=== PATIENT | male | born 1945 | race African-American/Black ===

== ENCOUNTER 2017-04-26 14:26 | Inpatient (IN) ==
[2017-04-26] MEDS ORDERED: LASIX IV ONE (18:24)
[2017-04-26 18:44] LABS: ALLEN TEST YES; BE 6.4 mmoll (-3.0-3.0); BLOOD TYPE ARTERIAL; DRAW SITE R RADIAL; METHB 1.2 % (0.0-1.5); O2(CT) 15.1 mL/dL (15.0-23.0); PO2(98.6) 65 mmHg (60-100); SAMPLE BLOOD; SAO2 93.9 % (95.0-100.0); THB 11.8 g/dL (11.5-17.4)
[2017-04-26 18:48] LABS: MODALITY CANNULA; PCO2(98.6) 71 mmHg (35-45)
[2017-04-26] MEDS: PROTONIX IV SCH (20:03)
[2017-04-26] MEDS: LOVENOX SUBQ SCH (20:03)
[2017-04-26] MEDS: SODIUM CHLORIDE 0.9% INJ SCH (20:03)
[2017-04-26 20:09] LABS: HEMOGLOBIN A1C 9.1 % (4.8-6.0)
[2017-04-26] MEDS: DUONEB (A & A) INH PRN (20:19)
[2017-04-26] MEDS ORDERED: HUMULIN R SUBQ SCH (21:00)
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
[2017-04-26] MEDS: HUMALOG SUBQ SCH (23:27)
[2017-04-27] MEDS: LEVAQUIN 500 MG/D5W 500 MG/100 ML IVPB IV SCH (01:28)
[2017-04-27] MEDS: NORCO-10 PO PRN ×2 (02:33→12:55)
[2017-04-27] MEDS: SOLU-MEDROL IV SCH ×3 (03:28→11:08)
[2017-04-27] MEDS: LANTUS SUBQ SCH (03:48)
[2017-04-27 07:03] LABS: MANUAL DIFF NEEDED? NO
[2017-04-27] MEDS: HUMALOG SUBQ SCH ×3 (07:04→18:05)
[2017-04-27 07:17] LABS: BASO% 0.2 % (0.0-0.8); EOS# 0.23 X1000 (0.0-0.7); EOS% 1.6 % (0.0-10.0); HEMATOCRIT 39.1 % (42.0-52.0); HEMOGLOBIN 12.5 g/dL (14.0-18.0); IMM GRAN% 0.7 % (0.0-0.5); LYMPH# 1.38 X1000 (1.2-3.4); LYMPH% 9.8 % (20.5-51.1); MCH 26.2 PG (27-31); MONO# 0.92 X1000 (0.11-0.59); MONO% 6.5 % (1.7-9.3); MPV 9.6 FL (7.4-10.4); NEUT% 81.2 % (42.2-75.2); PLT 315 X1000 (130-400); RBC 4.77 XMIL (4.7-6.1)
[2017-04-27 07:45] LABS: AGAP 9; ALBUMIN 3.8 g/dL (3.5-5.0); ALKALINE PHOSPHATASE 66 U/L (32-122); BUN 19 mg/dL (8-22); CALCIUM 9.3 mg/dL (8.8-10.2); CHLORIDE 97 mmol/L (98-107); COSMO 283; GOT 15 U/L (10-34); GPT 39 U/L (10-44); POTASSIUM 4.7 mmol/L (3.5-5.1); SODIUM 138 mmol/L (136-145); TCO2 32 mmol/L (25-35); TOTAL BILIRUBIN 0.33 mg/dL (0.20-1.00); TOTAL PROTEIN 7.2 g/dL (6.3-8.3)
[2017-04-27] MEDS: LIORESAL PO SCH (08:16)
[2017-04-27] MEDS: LOPRESSOR PO SCH (08:16)
[2017-04-27] MEDS: NEURONTIN PO SCH (08:16)
[2017-04-27] MEDS: LASIX IV SCH (08:16)
[2017-04-27] MEDS: RANEXA PO SCH (08:16)
[2017-04-27] MEDS: IMDUR PO SCH (08:16)
[2017-04-27] MEDS: PATIENT'S OWN MED PO SCH (08:17)
[2017-04-27] MEDS: MIRALAX PO SCH (08:17)
[2017-04-27] MEDS ORDERED: BREO ELLIPTA 100/25 MCG INH INH SCH (09:00)
[2017-04-27] MEDS: BREO ELLIPTA 100/25 MCG INH INH SCH (10:08)
[2017-04-27] MEDS: DUONEB (A & A) INH PRN ×3 (10:08→21:15)
[2017-04-27] MEDS: SPIRIVA INH SCH (10:08)
--- NOTE | 2017-04-27 17:31 | PROGRESS NOTE ---
DATE: 04/27/2017 SUBJECTIVE: Patient still has some swelling and shortness of breath, wheezing. No chest pain. He is gaining weight. He did not use CPAP machine. He is going to bring his own machine today. He did receive Lantus and blood sugars running around 300. REVIEW OF SYSTEMS: Shortness of breath, cough, wheezing, swelling of feet. Blood sugars running 300. OBJECTIVE: Vital Signs: On examination, he is afebrile. Blood pressure is 150 x 85, pulse is 60, 3 L nasal cannula, 94 pounds. Weight 235 pounds. Input and output negative -800. HEENT Exam: Atraumatic, normocephalic. Pupils equal, reactive to light. JVD not seen. Chest: Bilateral wheezing. Heart: Sounds are very distant. Belly is soft, obese, nontender. Good bowel sounds. No masses palpable. Extremities: 2+ pedal edema. INVESTIGATIONS: CBC: White cell count 14, hematocrit 39, platelets 315,000. SMA 7: Sodium 138, potassium 4.7, chloride 92, BUN 19, creatinine 0.9, glucose 184. Magnesium, LFTs, cardiac enzymes, proBNP was normal. ASSESSMENT AND PLAN: 1. A 72-year-old male, admitted to the hospital in acute asthma exacerbation with underlying Pickwickian syndrome. Continue oxygen and CPAP machine, bronchodilators, IV steroids, IV antibiotics with Levaquin. 2. Elevated blood sugar due to steroids. Continue on sliding scale with insulin coverage, Lantus 40 units at bedtime. 3. Edema due to corpulmonlae and continue on IV Lasix. 4. Noncritical coronary artery disease. Stable. 5. Obesity. Discussed with the patient. Cut down the calorie diet. 6. Deep venous thrombosis, gastrointestinal prophylaxis. LEVEL OF DOCUMENTATION: 25 minutes. cc: Brian Motta MD MTDD
[2017-04-28] MEDS: HUMALOG SUBQ SCH ×5 (00:03→22:55)
[2017-04-28] MEDS: LEVAQUIN 500 MG/D5W 500 MG/100 ML IVPB IV SCH ×2 (00:04→22:54)
[2017-04-28] MEDS: LANTUS SUBQ SCH ×2 (00:05→22:54)
[2017-04-28] MEDS: NORCO-10 PO PRN ×2 (00:26→22:53)
[2017-04-28] MEDS: SOLU-MEDROL IV SCH ×2 (01:58→10:08)
[2017-04-28 06:59] LABS: BASO% 0.1 % (0.0-0.8); HEMATOCRIT 37.3 % (42.0-52.0); HEMOGLOBIN 12.3 g/dL (14.0-18.0); IMM GRAN# 0.09 X1000 (0.0-0.04); IMM GRAN% 0.5 % (0.0-0.5); LYMPH# 1.02 X1000 (1.2-3.4); MANUAL DIFF NEEDED? YES; MCH 26.6 PG (27-31); MCV 80.7 FL (81-99); MONO# 1.12 X1000 (0.11-0.59); MONO% 6.6 % (1.7-9.3); MPV 9.8 FL (7.4-10.4); NEUT% 86.8 % (42.2-75.2); PLT 323 X1000 (130-400); RBC 4.62 XMIL (4.7-6.1)
[2017-04-28 07:16] LABS: AGAP 17; BUN 21 mg/dL (8-22); CALCIUM 9.7 mg/dL (8.8-10.2); CHLORIDE 96 mmol/L (98-107); COSMO 294; POTASSIUM 4.7 mmol/L (3.5-5.1); SODIUM 142 mmol/L (136-145); TCO2 29 mmol/L (25-35)
[2017-04-28 07:55] LABS: BANDS 4 % (0-1); LYMPHS 10 % (21-51); MONO 10 % (1-9)
[2017-04-28] MEDS: BREO ELLIPTA 100/25 MCG INH INH SCH (08:27)
[2017-04-28] MEDS: SPIRIVA INH SCH (08:27)
[2017-04-28] MEDS: IMDUR PO SCH (10:07)
[2017-04-28] MEDS: LIORESAL PO SCH (10:07)
[2017-04-28] MEDS: LOPRESSOR PO SCH (10:07)
[2017-04-28] MEDS: NEURONTIN PO SCH (10:07)
[2017-04-28] MEDS: RANEXA PO SCH (10:07)
[2017-04-28] MEDS: PATIENT'S OWN MED PO SCH (10:08)
[2017-04-28] MEDS: LOVENOX SUBQ SCH (10:08)
[2017-04-28] MEDS: MIRALAX PO SCH (10:08)
[2017-04-28] MEDS: LASIX IV SCH (10:08)
[2017-04-28] MEDS: PROTONIX IV SCH (10:08)
[2017-04-28 11:50] LABS: URINE MICRO REVIEW NEEDED? NO; URINE SOURCE VOIDED
[2017-04-28 11:57] LABS: BILIRUBIN URINE NEGATIVE (NEGATIVE); BLOOD URINE NEGATIVE (NEGATIVE); COLOR STRAW; GLUCOSE URINE 300 mg/dL (NEGATIVE); LEUKOCYTES URINE NEGATIVE (NEGATIVE); NITRITE URINE NEGATIVE (NEGATIVE); PH URINE 6.5; PROTEIN URINE NEGATIVE (NEGATIVE); SP GRAVITY URINE 1.004; TURBIDITY URINE CLEAR (CLEAR); UR EPITHELIAL CELLS <10 /HPF (<10); URINE BACTERIA NEGATIVE /HPF; URINE RBC <10 /HPF (<10); URINE WBC <10 /HPF (<10); UROBILINOGEN URINE NORMAL (NORMAL)
--- NOTE | 2017-04-28 13:27 | PROGRESS NOTE ---
DATE: 04/28/2017 SUBJECTIVE: The patient is using CPAP machine. Unable to get an IV access. A little better. Blood pressure is running high as well as blood sugar. REVIEW OF SYSTEMS: None reported. OBJECTIVE: Vital Signs: Stable. Blood pressure is 200/77, I's and O's -2 L. HEENT: Within normal limits. Chest: Decreased wheezing. Heart: Sounds are regular. Abdomen: Belly is soft, obese, nontender. Extremities: Decreased peripheral edema. ASSESSMENT AND PLAN: 1. Acute asthma exacerbation, improving. Decreased prednisone twice daily. 2. Edema, much improved. 3. Diabetes, on Lantus and diet. 4. Hypertension. Start on Norvasc 10 mg once daily since [place] has not been in the hospital. 5. Continue deep venous thrombosis and gastrointestinal prophylaxis. LEVEL OF DOCUMENTATION: 25 minutes. cc: Brian Motta MD
[2017-04-28] MEDS ORDERED: SOLU-MEDROL IV SCH (21:00)
--- NOTE | 2017-04-29 06:27 | EKG Report ---
Test Performed on : 04/27/2017 06:43:37 AM Test Reason : cp Blood Pressure : / mmHG Vent. Rate : 062 BPM Atrial Rate : 062 BPM P-R Int : 224 ms QRS Dur : 080 ms QT Int : 408 ms P-R-T Axes : 061 044 044 degrees QTc Int : 414 ms Sinus rhythm. with 1st degree AV block. Otherwise normal ECG When compared with ECG of 19-DEC-2016 13:46, Nonspecific ST and T wave abnormality diffuse Confirmed by Willian Otoole DO ([id number]) on 04/30/2017 7:18:34 AM
[2017-04-29] MEDS: HUMALOG SUBQ SCH ×4 (06:47→20:57)
[2017-04-29 07:38] LABS: BASO% 0.1 % (0.0-0.8); HEMATOCRIT 37.3 % (42.0-52.0); HEMOGLOBIN 12.3 g/dL (14.0-18.0); IMM GRAN% 0.6 % (0.0-0.5); MANUAL DIFF NEEDED? YES; MCH 26.5 PG (27-31); MCV 80.4 FL (81-99); MONO# 1.35 X1000 (0.11-0.59); MONO% 8.1 % (1.7-9.3); MPV 9.9 FL (7.4-10.4); NEUT% 85.2 % (42.2-75.2); PLT 331 X1000 (130-400); RBC 4.64 XMIL (4.7-6.1)
[2017-04-29 07:42] LABS: AGAP 11; BUN 26 mg/dL (8-22); CALCIUM 9.6 mg/dL (8.8-10.2); CHLORIDE 96 mmol/L (98-107); COSMO 288; POTASSIUM 4.5 mmol/L (3.5-5.1); SODIUM 138 mmol/L (136-145); TCO2 31 mmol/L (25-35)
[2017-04-29 08:02] LABS: LYMPHS 8 % (21-51); MONO 8 % (1-9); NRBC 1 % (0-0)
[2017-04-29] MEDS: BREO ELLIPTA 100/25 MCG INH INH SCH (08:14)
[2017-04-29] MEDS: SPIRIVA INH SCH (08:14)
[2017-04-29] MEDS: MIRALAX PO SCH (08:48)
[2017-04-29] MEDS: PROTONIX IV SCH (08:49)
[2017-04-29] MEDS: LOPRESSOR PO SCH (08:49)
[2017-04-29] MEDS: NORVASC PO SCH (08:49)
[2017-04-29] MEDS: LOVENOX SUBQ SCH (08:49)
[2017-04-29] MEDS: RANEXA PO SCH (08:49)
[2017-04-29] MEDS: LASIX IV SCH (08:49)
[2017-04-29] MEDS: NEURONTIN PO SCH (08:49)
[2017-04-29] MEDS: IMDUR PO SCH (08:49)
[2017-04-29] MEDS: LIORESAL PO SCH (08:49)
[2017-04-29] MEDS: SOLU-MEDROL IV SCH (08:50)
[2017-04-29] MEDS: PATIENT'S OWN MED PO SCH (08:50)
--- NOTE | 2017-04-29 09:17 | PROGRESS NOTE ---
DATE: 04/29/2017 SUBJECTIVE: The patient is getting better. Decreased shortness of breath, cough, and wheezing. REVIEW OF SYSTEMS: None reported. OBJECTIVE: Vital signs: Afebrile. Vitals are stable. Weight 230 pounds. Saturation 91% on room air. I's and O's negative 920. HEENT: Within normal limits. Neck: Supple. Chest: Clear. Heart: Sounds are regular. Abdomen: Belly is soft, obese, nontender. Good bowel sounds. Extremities: No peripheral edema or cyanosis. Neurologic: No obvious neurological deficits. INVESTIGATIONS: CBC: White cell count 16, hematocrit 37, platelet count 331,000. SMA 7 is normal. ASSESSMENT AND PLAN: 1. Acute asthma exacerbation, better. I will cut down the prednisone to 5 mg after tapering of steroids. 2. Uncontrolled hypertension and diabetes. Optimize the treatment. 3. Edema is much improved. 4. Continue present medical therapy. LEVEL OF DOCUMENTATION: 15 minutes. cc: Brian Motta MD
[2017-04-29] MEDS: LANTUS SUBQ SCH (20:54)
[2017-04-29] MEDS: NORCO-10 PO PRN (20:56)
[2017-04-29] MEDS: LEVAQUIN 500 MG/D5W 500 MG/100 ML IVPB IV SCH (21:03)
[2017-04-30] MEDS: NORCO-10 PO PRN (03:51)
[2017-04-30] MEDS: HUMALOG SUBQ SCH ×4 (06:22→21:16)
[2017-04-30] MEDS ORDERED: TORADOL IV ONE (08:18)
[2017-04-30] MEDS: LOPRESSOR PO SCH (08:21)
[2017-04-30] MEDS: PATIENT'S OWN MED PO SCH (08:21)
[2017-04-30] MEDS: IMDUR PO SCH (08:22)
[2017-04-30] MEDS ORDERED: MISC. PHARMACY COMMUNICATION SCH (08:30)
[2017-04-30] MEDS: LOVENOX SUBQ SCH (08:31)
[2017-04-30] MEDS: NORVASC PO SCH (08:31)
[2017-04-30] MEDS: NEURONTIN PO SCH (08:31)
[2017-04-30] MEDS: SODIUM CHLORIDE 0.9% INJ SCH (08:31)
[2017-04-30] MEDS: PROTONIX IV SCH (08:31)
[2017-04-30] MEDS: SOLU-MEDROL IV SCH (08:31)
[2017-04-30] MEDS: RANEXA PO SCH (08:31)
[2017-04-30] MEDS: LIORESAL PO SCH (08:31)
[2017-04-30] MEDS: MIRALAX PO SCH (08:32)
--- NOTE | 2017-04-30 09:00 | PROGRESS NOTE ---
DATE: 04/30/2017 SUBJECTIVE: The patient here with complaints of tooth pain, decreased work of breathing on CPAP machine. OBJECTIVE: Vital Signs: Blood pressure is running a little bit high 200, on 2 L nasal cannula. HEENT: Within normal limits. Neck: Supple. Chest: Decreased wheezing. Abdomen: Belly is soft, obese, nontender. Extremities: No peripheral edema, cyanosis. Neurologic: No obvious neurological deficits. LABORATORY DATA: No labs were done. ASSESSMENT AND PLAN: 1. Hypertension. Will use the hydralazine as needed. 2. Asthma exacerbation, stable. 3. Pickwickian syndrome. Edema is improving. 4. Diabetes and hypertension. Discussed. 5. Out of the bed with Physical Therapy. LEVEL OF DOCUMENTATION: About 15 minutes. cc: Brian Motta MD
[2017-04-30] MEDS: SPIRIVA INH SCH (10:52)
[2017-04-30] MEDS: BREO ELLIPTA 100/25 MCG INH INH SCH (10:52)
[2017-04-30] MEDS ORDERED: INSULIN PEN NEEDLES ONE (17:30)
[2017-04-30] MEDS: LANTUS SUBQ SCH (21:15)
[2017-04-30] MEDS: LEVAQUIN 500 MG/D5W 500 MG/100 ML IVPB IV SCH (21:15)
[2017-04-30] MEDS: TORADOL IV PRN (21:22)
[2017-05-01] MEDS: TORADOL IV PRN (05:20)
[2017-05-01] MEDS: HUMALOG SUBQ SCH (06:18)
[2017-05-01] MEDS: BREO ELLIPTA 100/25 MCG INH INH SCH (07:37)
[2017-05-01] MEDS: SPIRIVA INH SCH (07:37)
[2017-05-01 07:58] VITALS: BP 167/80
[2017-05-01] MEDS ORDERED: PREVNAR 13 IM ONE (08:26)
[2017-05-01] MEDS: RANEXA PO SCH (08:29)
[2017-05-01] MEDS: LIORESAL PO SCH (08:29)
[2017-05-01] MEDS: NEURONTIN PO SCH (08:29)
[2017-05-01] MEDS: NORVASC PO SCH (08:29)
[2017-05-01] MEDS: LOVENOX SUBQ SCH (08:30)
[2017-05-01] MEDS: SOLU-MEDROL IV SCH (08:30)
[2017-05-01] MEDS: PROTONIX IV SCH (08:30)
[2017-05-01] MEDS: MIRALAX PO SCH (08:30)
[2017-05-01] MEDS: PATIENT'S OWN MED PO SCH (08:30)
[2017-05-01] MEDS: SODIUM CHLORIDE 0.9% INJ SCH (08:30)
[2017-05-01] MEDS ORDERED: LOPRESSOR PO SCH (09:00)
[2017-05-01] MEDS ORDERED: IMDUR PO SCH (09:00)
--- NOTE | 2017-05-02 21:05 | DISCHARGE SUMMARY ---
ADMISSION DATE: 04/26/2017 DISCHARGE DATE: 05/01/2017 DISCHARGING DIAGNOSIS: Acute asthma exacerbation. SECONDARY DIAGNOSIS: 1. Pickwickian syndrome. 2. Sleep apnea on CPAP machine. 3. Benign prostatic hypertrophy. 4. Gallstones, asymptomatic. 5. [place] syndrome due to exogenous steroids. Decrease the prednisone to 5 mg daily. 6. Type 2 diabetes. 7. Hypertension. 8. Nonalcohol steatohepatitis. 9. Acid reflux disease. 10. Hyperuricemia. 11. Umbilical hernia. 12. Osteoarthritis. 13. Spondylosis of lumbar spine. BRIEF HISTORY: Please see the H and P that was done on 04/26/2017. In brief, he is a 72-year-old male who was admitted to the hospital on 04/26/2017 with shortness of breath, cough, wheezing, swelling of feet. Unable to improve with outpatient medical management. HOSPITAL COURSE: He has history of asthma under the care of Dr. Lambert and basically on Xolair and prednisone 10 mg daily. The patient was given oxygen, CPAP, bronchodilators, IV steroids, IV antibiotics. After Lasix, significant improvement of edema. Blood sugars are running high. He was not able to take Bydureon. Rest of the hospital course was uneventful. The patient was advised to lose weight. LABORATORY: CBC: White cell count 16, hematocrit 37, platelets 331,000. SMA7: Sodium 138, potassium 4.8, chloride 96, BUN 26, creatinine 1.00. A1c 9.1, glucose 240. At the time of discharge, patient is stable. DISCHARGE INSTRUCTIONS ARE FOLLOWS: 1. Oxygen 2 L. 2. CPAP machine. 3. Breo 1 inhalation daily. 4. ProAir for breakthrough pain. 5. Incruse 62.5 mcg daily. 6. Gabapentin 300 q.8. 7. Baclofen 10 mg daily. 8. Prednisone 5 mg daily. 9. Metoprolol 25 daily. 10. [place] 10 q.6 as needed. 11. Ranexa 500 daily. 12. Isosorbide 30 mg daily. 13. Sulindac 150 daily. 14. Sular 20 mg daily. 15. Insulin Lantus 40 units at bedtime. 16. Bydureon or Victoza as directed. 17. Patient also has left knee pain due to meniscal tear with a Stanley's cyst. Had an MRI done in February 2017. 18. Follow up in my office in next week. cc: Brian Motta MD
== END 2017-05-01 09:57 | disposition home health service (06) ==
LOC: DIRADM 14:26 → 3N 14:58
PROVIDERS: ADMIT Internal Medicine; ATTEND Internal Medicine

== ENCOUNTER 2019-02-11 17:05 | Inpatient (IN) ==
--- NOTE | 2019-02-11 21:58 | Diag Imaging Result Doc PS360 ---
EXAM: CHEST-2 VIEWS - 02/11/2019 HISTORY: SOB TECHNIQUE: Chest two views COMPARISON: 12/06/2017 FINDINGS: Heart size appears normal. There are possibly mild COPD changes. There is no consolidation, gross pulmonary edema, pleural effusion, or pneumothorax identified. IMPRESSION: Possible mild COPD changes. No discrete pneumonia. Electronically signed by Tima Hahn 02/11/2019 9:56 PM
[2019-02-11 22:39] LABS: BASO# 0.03 X1000 (0.0-0.2); BASO% 0.2 % (0.0-0.8); EOS# 0.12 X1000 (0.0-0.7); EOS% 0.8 % (0.0-10.0); HEMATOCRIT 38.3 % (42.0-52.0); HEMOGLOBIN 12.6 g/dL (14.0-18.0); IMM GRAN# 0.07 X1000 (0.0-0.04); IMM GRAN% 0.5 % (0.0-0.5); LYMPH# 1.81 X1000 (1.2-3.4); LYMPH% 11.9 % (20.5-51.1); MCH 26.6 PG (27-31); MCHC 32.9 g/dL (33-37); MONO# 1.09 X1000 (0.11-0.59); MONO% 7.2 % (1.7-9.3); MPV 9.6 FL (7.4-10.4); NEUT# 12.08 X1000 (1.4-6.5); NEUT% 79.4 % (42.2-75.2); PLT 335 X1000 (130-400); RBC 4.73 XMIL (4.7-6.1); RDW 14.9 % (11.5-14.5)
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
[2019-02-11 22:53] LABS: HEMOGLOBIN A1C 8.4 % (4.8-6.0)
[2019-02-11 22:55] LABS: AGAP 11; ALB/GLOB RATIO 1.5; ALBUMIN 4.3 g/dL (3.5-5.0); ALKALINE PHOSPHATASE 77 U/L (32-122); BUN 19 mg/dL (8-22); CALCIUM 9.6 mg/dL (8.8-10.2); CHLORIDE 100 mmol/L (98-107); COSMO 290; ESTIMATED GFR > 60; GLUCOSE 190 mg/dL (70-104); GOT 11 U/L (10-34); GPT 20 U/L (10-44); PHOSPHORUS 2.6 mg/dL (2.7-4.5); POTASSIUM 4.7 mmol/L (3.5-5.1); SODIUM 142 mmol/L (136-145); TCO2 31 mmol/L (25-35); TOTAL BILIRUBIN 0.26 mg/dL (0.20-1.00); TOTAL PROTEIN 7.1 g/dL (6.3-8.3)
[2019-02-11 23:02] LABS: CK PROFILE 212 U/L (24-204)
[2019-02-11 23:22] LABS: CK INDEX 1.6 (0.0-2.5); CK-MB 3.41 ng/mL (0.0-5.0)
[2019-02-11 23:46] LABS: SED RATE 16 mm/hr (0-15)
[2019-02-11] MEDS: LOVENOX SUBQ SCH (23:54)
[2019-02-11] MEDS: LASIX IV SCH (23:54)
[2019-02-11] MEDS: NEURONTIN PO SCH (23:55)
[2019-02-11] MEDS: HUMALOG SUBQ SCH (23:55)
[2019-02-11] MEDS: LANTUS INSULIN SUBQ SCH (23:55)
[2019-02-12 01:17] LABS: ALLEN TEST YES; BE 9.7 mmoll (-3.0-3.0); BLOOD TYPE ARTERIAL; HCO3-(ACT) 32.5 mmoll (20.0-26.0); METHB 1.1 % (0.0-1.5); O2(CT) 17.2 mL/dL (15.0-23.0); O2HB 96.4 % (95.0-99.0); PCO2(98.6) 45 mmHg (35-45); PO2(98.6) 176 mmHg (60-100); SAMPLE BLOOD; SAO2 98.6 % (95.0-100.0); SRATE 12 BPM; THB 12.4 g/dL (11.5-17.4); pH(98.6) 7.49 (7.35-7.45)
[2019-02-12 01:19] LABS: MODALITY BI PAP
[2019-02-12] MEDS: NEURONTIN PO SCH ×4 (06:39→22:03)
--- NOTE | 2019-02-12 07:26 | EKG Report ---
Test Performed on : 02/12/2019 00:15:07 AM Test Reason : chest pain Blood Pressure : / mmHG Vent. Rate : 073 BPM Atrial Rate : 073 BPM P-R Int : 232 ms QRS Dur : 078 ms QT Int : 380 ms P-R-T Axes : -27 008 055 degrees QTc Int : 418 ms Sinus rhythm. with sinus arrhythmia. with 1st degree AV block. Nonspecific T wave abnormality Abnormal ECG When compared with ECG of 27-APR-2017 06:43, No significant change was found Confirmed by Rolando GILES, Adan Guillaume ([id number]) on 02/12/2019 6:38:52 PM
[2019-02-12] MEDS ORDERED: BREO ELLIPTA 100/25 MCG INH INH SCH (07:30)
[2019-02-12] MEDS ORDERED: INCRUSE ELLIPTA INH SCH (07:30)
[2019-02-12] MEDS ORDERED: VENTOLIN HFA INH PRN (08:26)
[2019-02-12] MEDS ORDERED: NORCO-10 PO PRN (08:26)
[2019-02-12] MEDS: HUMALOG SUBQ SCH ×4 (08:31→22:10)
[2019-02-12] MEDS ORDERED: LIORESAL PO SCH (09:00)
[2019-02-12] MEDS ORDERED: NISOLDIPINE 20 MG PO SCH (09:00)
[2019-02-12] MEDS ORDERED: LOPRESSOR PO SCH (09:00)
[2019-02-12] MEDS ORDERED: RANEXA PO SCH (09:00)
[2019-02-12] MEDS ORDERED: PREDNISONE PO SCH (09:00)
[2019-02-12] MEDS: DUONEB (A & A) INH SCH ×3 (10:00→21:00)
[2019-02-12] MEDS: RANEXA PO SCH ×2 (10:25→22:03)
[2019-02-12] MEDS: FLOMAX PO SCH (10:25)
[2019-02-12] MEDS: SINGULAIR PO SCH (10:26)
[2019-02-12] MEDS: KLOR-CON POWDER PACKET PO SCH (10:27)
[2019-02-12] MEDS: NORVASC PO SCH (10:27)
[2019-02-12] MEDS: PREDNISONE PO SCH (10:29)
[2019-02-12] MEDS: BUMEX PO SCH ×2 (10:29→22:03)
[2019-02-12] MEDS: ZYLOPRIM PO SCH (10:30)
[2019-02-12] MEDS: IMDUR PO SCH (10:30)
[2019-02-12] MEDS: PROSCAR PO SCH (10:30)
[2019-02-12] MEDS: CLINORIL PO SCH (10:31)
[2019-02-12] MEDS: LASIX IV SCH ×2 (10:31→22:04)
[2019-02-12] MEDS: GLUCOPHAGE PO SCH ×2 (10:54→16:41)
[2019-02-12] MEDS ORDERED: COMBIVENT RESPIMAT INHALER INH SCH (14:00)
--- NOTE | 2019-02-12 21:46 | PROGRESS NOTE ---
DATE: 02/12/2019 SUBJECTIVE: The patient has shortness of breath off BiPAP machine. Swelling is much improved. OBJECTIVE: Vital signs: Temperature is 97.6, pulse is 60, blood pressure is 115/60, oxygen saturation 92%. HEENT Exam: Within normal limits. Neck: Supple. No lymphadenopathy. Chest: Bilateral air entry very poor. Cardiovascular: Distant heart sounds. Abdomen: Belly is soft, obese. Extremities: 1+ pedal edema. INVESTIGATIONS: White cell count 15, hematocrit 38, platelets 335,000. Sedimentation rate is 16. ABG: pH is 7.49, pCO2 45, pO2 176 on BiPAP. Sodium 142, potassium 4.7, BUN 19, creatinine 1, glucose 190, A1c 8.4, CK 212. Troponin was negative. ProBNP 136. Thyroid function tests were normal. Chest x-ray was COPD. No pneumonia. ASSESSMENT AND PLAN: 1. A 73-year-old male admitted to the hospital with acute asthma/Pickwickian syndrome with edema. Continue oxygen, BiPAP. I discussed with Dr. Lambert he needs to lose weight. Please continue on prednisone, Xolair for asthma. 2. Type 2 diabetes on Lantus 40 units at bedtime, metformin 500 p.o. b.i.d. 3. Allergies, asthma on Singulair and Xolair. 4. Chronic osteoarthritis pain on Sulindac. 5. Edema due to cor pulmonale. Lasix IV q.12. 6. Gout on Zyloprim. 7. Benign prostatic hypertrophy on finasteride and Flomax. 8. Noncritical heart disease. Last stress test was negative on Ranexa, isosorbide, under care of Dr. Meyer. 9. Hypertension on amlodipine. 10. Deep venous thrombosis prophylaxis. If stable, we will discharge in the morning. LEVEL OF DOCUMENTATION: 25 minutes. cc: Brian Motta MD
[2019-02-12] MEDS: LOVENOX SUBQ SCH (22:04)
[2019-02-12] MEDS: LANTUS INSULIN SUBQ SCH (22:05)
[2019-02-13] MEDS: DUONEB (A & A) INH SCH (03:00)
[2019-02-13] MEDS: HUMALOG SUBQ SCH (07:31)
[2019-02-13 08:18] VITALS: BP 153/68
[2019-02-13] MEDS: BUMEX PO SCH (09:10)
[2019-02-13] MEDS: KLOR-CON POWDER PACKET PO SCH (09:16)
[2019-02-13] MEDS: GLUCOPHAGE PO SCH (09:16)
[2019-02-13] MEDS: FLOMAX PO SCH (09:16)
[2019-02-13] MEDS: LASIX IV SCH (09:17)
[2019-02-13] MEDS: ZYLOPRIM PO SCH (09:17)
[2019-02-13] MEDS: SINGULAIR PO SCH (09:17)
[2019-02-13] MEDS: IMDUR PO SCH (09:17)
[2019-02-13] MEDS: PROSCAR PO SCH (09:17)
[2019-02-13] MEDS: NEURONTIN PO SCH (09:17)
[2019-02-13] MEDS: NORVASC PO SCH (09:18)
[2019-02-13] MEDS: CLINORIL PO SCH (09:18)
[2019-02-13] MEDS: PREDNISONE PO SCH (09:18)
--- NOTE | 2019-02-14 22:48 | DISCHARGE SUMMARY ---
ADMISSION DATE: 02/11/2019 DISCHARGE DATE: 02/13/2019 DISCHARGE DIAGNOSIS: Acute asthma exacerbation with right-sided heart failure. SECONDARY DIAGNOSES: 1. History of asthma, on prednisone, dependent in Xolair. 2. Pickwickian syndrome. 3. Sleep apnea. 4. Noncritical coronary artery disease. Recent stress test was negative by Dr. Meyer. 5. Benign prostatic hypertrophy. 6. Gallstones. 7. 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 8. Type 2 diabetes, poorly controlled. 9. Hypertension. 10. Acid reflux disease. 11. Hyperglycemia. 12. Nonalcoholic steatohepatitis. 13. Osteoarthritis of lumbar spine. 14. Umbilical hernia. BRIEF HISTORY: Please see the H and P which was done on 02/11/2019. In brief, he is a 73-year- old male with the above problems, under the care of Dr. Lambert. Obesity; sleep apnea; pickwickian syndrome. He came in with shortness of breath, wheezing and swelling of feet. He has been taking oxygen 3 L. Oxygen levels in my office and pulse oximetry 85%. He was given the options. and his , he just came back from [facility]. HOSPITAL COURSE: He was admitted here for oxygen, bronchodilators, IV antibiotics, IV Lasix and given BiPAP. Subsequently, he was less bronchospastic, and he was advised to lose weight. LABORATORY DATA: White cell count 15.2, hematocrit 38, platelets 335,000. Sedimentation rate was 16. ABG: PH is 7.49, pCO2 is 45, pO2 is 166 on BiPAP machine. SMA 7 is normal. A1c 8.4. Cardiac enzymes are negative. ProBNP 136. Thyroid function tests were normal. DISCHARGE MEDICATIONS: Breo 100/25 one puff daily; Combivent for breakthrough; [place] 10 q.6 with pain specialist; isosorbide 30 mg daily; sulindac 150 daily; Lantus 40 units subcutaneous at bedtime; allopurinol 100 daily; amlodipine 10 daily; Bumex 2 mg p.o. b.i.d.; finasteride 5 mg daily; gabapentin 800 t.i.d.; metformin 500 p.o. b.i.d.; potassium 20 mEq daily; prednisone 10 mg daily, we will slowly decrease to 5 from 10; Ranexa 1000 p.o. b.i.d.; Flomax 0.4 daily; ProAir for breakthrough; Singulair 10 daily; Xolair as needed, by Dr. Lambert. DISCHARGE INSTRUCTIONS: Chronic pain specialist followup. Initiate vaccination protocol prior to the discharge. Obviously, the patient received pneumococcal vaccine 13 on 05/01/2017. cc: MD Isac Mueller MD James E. Boyle, MD MTDD
== END 2019-02-13 11:10 | disposition home or self-care (01) | DRG 202 ==
LOC: DIRADM 17:05 → 4N 21:28
PROVIDERS: ADMIT Internal Medicine; ATTEND Internal Medicine
CPT/HCPCS: 71020; 71046; 80053; 82550; 82553; 82805; 82948; 83036; 83880; 84100; 84439; 84484; 85025; 85651; 93005; 93010; 93306; 94640; 94660; 94761; A9270; J1650; J1815; J1940; J7506; J7512; S0138; XXXXX

== ENCOUNTER 2019-09-19 15:47 | Inpatient (IN) ==
[2019-09-19] MEDS ORDERED: LASIX IV ONE (15:57)
[2019-09-19] MEDS ORDERED: SODIUM CHLORIDE 0.9% INJ SCH (16:00)
--- NOTE | 2019-09-19 18:02 | Diag Imaging Result Doc PS360 ---
EXAM: CHEST-2 VIEWS 09/19/2019 HISTORY: SOB TECHNIQUE: AP upright chest at 1754 with lateral COMMENT: The appearance of the chest has not changed significantly since 02/11/2019. IMPRESSION: No acute abnormality. Electronically signed by Blake Townsend 09/19/2019 5:59 PM
[2019-09-19 19:06] LABS: BASO# 0.02 X1000 (0.0-0.2); BASO% 0.1 % (0.0-0.8); EOS# 0.17 X1000 (0.0-0.7); EOS% 1.1 % (0.0-10.0); HEMATOCRIT 36.3 % (42.0-52.0); HEMOGLOBIN 11.6 g/dL (14.0-18.0); IMM GRAN% 0.7 % (0.0-0.5); LYMPH# 1.13 X1000 (1.2-3.4); LYMPH% 7.4 % (20.5-51.1); MCH 26.5 PG (27-31); MCV 82.9 FL (81-99); MONO# 0.75 X1000 (0.11-0.59); MONO% 4.9 % (1.7-9.3); MPV 9.6 FL (7.4-10.4); NEUT# 13.19 X1000 (1.4-6.5); NEUT% 85.8 % (42.2-75.2); PLT 322 X1000 (130-400); RBC 4.38 XMIL (4.7-6.1); WBC 15.36 X1000 (4.8-10.8)
[2019-09-19] MEDS ORDERED: VENTOLIN HFA INH PRN (19:16)
[2019-09-19 19:19] LABS: AGAP 11; BUN 17 mg/dL (8-22); CALCIUM 8.8 mg/dL (8.8-10.2); CHLORIDE 95 mmol/L (98-107); COSMO 279; CREATININE 1.1 mg/dL (0.7-1.2); ESTIMATED GFR > 60; GLUCOSE 226 mg/dL (70-104); MAGNESIUM 1.8 mg/dL (1.5-2.7); POTASSIUM 5.2 mmol/L (3.5-5.1); SODIUM 135 mmol/L (136-145); TCO2 29 mmol/L (25-35)
[2019-09-19 19:27] LABS: BANDS 2 % (0-1); EOS 2 % (1-10); LARGE PLATELETS 1+; LYMPHS 8 % (21-51); MONO 4 % (1-9); SEGS 84 % (42-75)
[2019-09-19] MEDS: DUONEB (A & A) INH SCH ×2 (19:36→23:24)
[2019-09-19] MEDS: LEVAQUIN 500 MG/D5W 500 MG/100 ML IVPB IV SCH (19:40)
[2019-09-19] MEDS: PROTONIX IV SCH (19:41)
--- NOTE | 2019-09-19 19:47 | HISTORY AND PHYSICAL ---
HISTORY OF PRESENT ILLNESS: Mr. Araujo, who is a 74-year-old gentleman, has been having shortness of breath and increasing leg edema with some pain in the legs and redness. He actually went to Med-Surg this afternoon, where after initial examination, it was found that he had severe shortness of breath, was in congestive heart failure, and had acute bronchitis with COPD also, and some stasis dermatitis. Hence, he was admitted. He has a known case of hypertension, maturity-onset diabetes, COPD, gross obesity, and BPH. He has severe arthritis in both knees as well as degenerative disc disease in the lumbar spine. He has been getting more and more symptomatic. Hence, he was admitted to the hospital. He is a patient of Dr. Motta. SURGICAL HISTORY: Reveals history of 2 back surgeries in the past. He had multiple sores and multiple scarring in both legs; however, there was no leg surgery according to him. SOCIAL HISTORY: He denies a history of alcohol intake. He smokes on a regular basis. He has been smoking for more than 60 years now. ALLERGIES: He is allergic to Monopril or fosinopril. MEDICATIONS: Include tamsulosin, prednisone, potassium, montelukast, metformin, isosorbide, Ranexa, Humalog insulin and albuterol inhaler. REVIEW OF SYSTEMS: Other than shortness of breath, persistent cough and pain in the legs as well as increasing swelling, review of systems is noncontributory. PHYSICAL EXAMINATION: VITAL SIGNS: Reveal temperature normal, pulse 85 per minute, respiratory rate 18 per minute, blood pressure 177/78. HEAD: Normocephalic. Pupils PERRLA. Fundus examination not done. NECK: Supple. JVP normal. ENT: Unremarkable. NECK: There is no evidence of lymphadenopathy or thyroid enlargement. EXTREMITIES: There is gross pedal edema with some scarring and mild stasis dermatitis with skin inflammation. Pedal pulses feeble. There is no calf tenderness. The patient is obese. BREASTS: Normal. CHEST: Normal inspection. LUNGS: Reveal some expiratory wheezing bilaterally with occasional basal rales. PMI in the normal position. CARDIOVASCULAR: PMI cannot be located. Heart sounds normal. No murmur, gallop or rub noted. ABDOMEN: Obese. The hernial orifice is normal. No guarding, rigidity, free fluid, masses, or organomegaly. Bowel sounds normal. RECTAL: Deferred. STATION DETECTIVE: Higher functions normal. Cranial nerves normal. Motor and sensory system examination unremarkable. Deep tendon reflexes normal. Plantars downgoing. Skull and spine examination normal for age. No cerebellar signs or signs of meningeal irritation. SKIN: Unremarkable except for the cellulitis which is mild in both legs. IMPRESSION: 1. Chronic obstructive pulmonary disease with acute exacerbation. 2. Mild congestive heart failure on clinical basis. 3. Some mild cellulitis on both legs. PLAN: Start IV Lasix, Levaquin and respiratory therapy. Continue prednisone and continue his oral medications. We will put him on Protonix as well as Lovenox. cc: MD Brian Hawkins MD
[2019-09-19] MEDS ORDERED: COMBIVENT RESPIMAT INHALER INH SCH (20:00)
[2019-09-19] MEDS: GLUCOPHAGE PO SCH (21:33)
[2019-09-19] MEDS: RANEXA PO SCH (21:33)
[2019-09-19] MEDS: LANTUS INSULIN SUBQ SCH (21:33)
[2019-09-19] MEDS: LOVENOX SUBQ SCH (21:33)
[2019-09-19] MEDS: HUMALOG SUBQ SCH (22:15)
[2019-09-20] MEDS: DUONEB (A & A) INH SCH ×6 (03:21→23:37)
[2019-09-20] MEDS: HUMALOG SUBQ SCH ×5 (06:30→20:25)
[2019-09-20] MEDS: NEURONTIN PO SCH ×3 (08:32→20:25)
[2019-09-20] MEDS: PREDNISONE PO SCH (08:32)
[2019-09-20] MEDS: LASIX IV SCH (08:33)
[2019-09-20] MEDS: NORVASC PO SCH (08:34)
[2019-09-20] MEDS: PROSCAR PO SCH (08:34)
[2019-09-20] MEDS: SINGULAIR PO SCH (08:34)
[2019-09-20] MEDS: KLOR-CON POWDER PACKET PO SCH (08:34)
[2019-09-20] MEDS: ZYLOPRIM PO SCH (08:34)
[2019-09-20] MEDS: FLOMAX PO SCH (08:34)
[2019-09-20] MEDS: IMDUR PO SCH (08:34)
[2019-09-20] MEDS: RANEXA PO SCH ×2 (08:35→20:25)
[2019-09-20] MEDS: GLUCOPHAGE PO SCH ×2 (08:36→17:35)
[2019-09-20] MEDS: BREO ELLIPTA 100/25 MCG INH INH SCH (08:51)
[2019-09-20] MEDS: CLINORIL PO SCH (09:22)
[2019-09-20 10:48] LABS: ALLEN TEST YES; BE 6.1 mmoll (-3.0-3.0); BLOOD TYPE ARTERIAL; HCO3-(ACT) 29.6 mmoll (20.0-26.0); METHB 0.8 % (0.0-1.5); O2(CT) 17.4 mL/dL (15.0-23.0); O2HB 94.1 % (95.0-99.0); PO2(98.6) 75 mmHg (60-100); SAMPLE BLOOD; SAO2 96.3 % (95.0-100.0); THB 13.1 g/dL (11.5-17.4); pH(98.6) 7.36 (7.35-7.45)
[2019-09-20 10:50] LABS: MODALITY CANNULA; PCO2(98.6) 59 mmHg (35-45)
[2019-09-20] MEDS: SOLU-MEDROL IV SCH ×2 (11:50→22:18)
--- NOTE | 2019-09-20 12:55 | PROGRESS NOTE ---
DATE: 09/20/2019 Mr. Araujo was admitted yesterday with COPD and acute exacerbation. White count is 15.36. He has some CO2 retention with pH of 7.36, pCO2 of 59. Besides his breathing treatments and BiPAP at nighttime, we have started IV Solu-Medrol and IV antibiotics. The cellulitis on the legs appears improved. He complains about severe back pain. We will continue the [place] p.r.n. -8 cc: MD Brian Hawkins MD
[2019-09-20] MEDS: NORCO-10 PO PRN (13:51)
[2019-09-20] MEDS: PROTONIX IV SCH (15:23)
[2019-09-20] MEDS: LOVENOX SUBQ SCH (19:45)
[2019-09-20] MEDS: LEVAQUIN 500 MG/D5W 500 MG/100 ML IVPB IV SCH (19:45)
[2019-09-20] MEDS: LANTUS INSULIN SUBQ SCH (20:26)
[2019-09-21] MEDS: DUONEB (A & A) INH SCH ×6 (04:05→23:28)
[2019-09-21] MEDS: HUMALOG SUBQ SCH ×4 (06:07→21:23)
[2019-09-21 06:52] LABS: AGAP 13; BUN 20 mg/dL (8-22); CALCIUM 8.9 mg/dL (8.8-10.2); CHLORIDE 97 mmol/L (98-107); COSMO 287; CREATININE 1.2 mg/dL (0.7-1.2); ESTIMATED GFR > 60; GLUCOSE 281 mg/dL (70-104); POTASSIUM 4.9 mmol/L (3.5-5.1); SODIUM 137 mmol/L (136-145); TCO2 27 mmol/L (25-35)
--- NOTE | 2019-09-21 07:06 | EKG Report ---
Test Performed on : 09/21/2019 07:01:21 AM Test Reason : CP Blood Pressure : / mmHG Vent. Rate : 073 BPM Atrial Rate : 073 BPM P-R Int : 266 ms QRS Dur : 084 ms QT Int : 374 ms P-R-T Axes : 011 027 033 degrees QTc Int : 412 ms Sinus rhythm. with 1st degree AV block. Otherwise normal ECG Confirmed by Rolando GILES, Adan Guillaume ([id number]) on 09/21/2019 9:29:27 AM
[2019-09-21] MEDS: BREO ELLIPTA 100/25 MCG INH INH SCH (07:50)
[2019-09-21] MEDS: NEURONTIN PO SCH ×4 (09:11→20:31)
[2019-09-21] MEDS: GLUCOPHAGE PO SCH ×2 (09:12→17:10)
[2019-09-21] MEDS: LASIX IV SCH (09:12)
[2019-09-21] MEDS: PROSCAR PO SCH (09:13)
[2019-09-21] MEDS: SINGULAIR PO SCH (09:13)
[2019-09-21] MEDS: FLOMAX PO SCH (09:13)
[2019-09-21] MEDS: KLOR-CON POWDER PACKET PO SCH (09:13)
[2019-09-21] MEDS: ZYLOPRIM PO SCH (09:13)
[2019-09-21] MEDS: NORVASC PO SCH (09:13)
[2019-09-21] MEDS: IMDUR PO SCH (09:13)
[2019-09-21] MEDS: CLINORIL PO SCH (09:13)
[2019-09-21] MEDS: PREDNISONE PO SCH (09:13)
[2019-09-21] MEDS: RANEXA PO SCH ×2 (09:13→20:25)
[2019-09-21] MEDS: SOLU-MEDROL IV SCH (11:32)
[2019-09-21] MEDS: ELOCON CREAM TOP SCH (15:10)
[2019-09-21] MEDS: PROTONIX IV SCH (17:10)
[2019-09-21] MEDS: LEVAQUIN 500 MG in NS 100 ML IV SCH (20:04)
[2019-09-21] MEDS: LOVENOX SUBQ SCH (20:08)
[2019-09-21] MEDS: LANTUS INSULIN SUBQ SCH (21:24)
[2019-09-21] MEDS: NORCO-10 PO PRN (22:02)
--- NOTE | 2019-09-22 03:33 | PROGRESS NOTE ---
DATE: 09/21/2019 SUBJECTIVE: A 74-year-old male admitted to the hospital on 09/19/[address] Whalen. The patient was admitted with dependent edema with cellulitis of the right leg with blisters. He also complains of left sciatica pain. His edema is much improved since he got admitted. He has some blisters along with some funny rash on the front of the right leg. REVIEW OF SYSTEMS: None reported other than intractable left sciatica pain. PAST MEDICAL HISTORY: Reviewed. PAST SURGICAL HISTORY: Reviewed. MEDICINES: Reviewed. ALLERGIES: ADELINE# PHYSICAL EXAMINATION: Vital Signs: Temperature is 97.9 degrees, pulse 84, blood pressure 164/58, and 3 L nasal cannula 100%. Weight is 222 pounds. HEENT: Within normal limits. Neck: Supple. Chest: Bilateral air entry. Heart: Sounds are regular. Abdomen: Belly is soft and obese. Edema is improved. He has a rash and blisters in the front of the right leg noted. LABORATORY: White cell count 15, hematocrit 36, and platelets 322,000. Sedimentation rate was 16. ABG pH is 7.36, pCO2 59, PO2 75 on 32%. Sodium 137, potassium 4.9, chloride 97, BUN 20, creatinine 1.2, glucose 280, calcium 8.9, ProBNP 72. EKG normal sinus nothing acute. ASSESSMENT AND PLAN: 1. Edema of the legs due to dependent edema. Continue on IV Lasix. 2. Type 2 diabetes. 3. Metformin 500 p.o. b.i.d. 4. Cellulitis on IV Levaquin. 5. Chronic asthma on long-term prednisone 10 mg daily. 6. Chronic back pain on Lortab. 7. 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 8. Hypertension on Norvasc. 9. Gout on Zyloprim. 10. BPH on Proscar and Flomax. 11. Will follow up. LEVEL OF DOCUMENTATION: 25 minutes. cc: Brian Motta MD MTDD
[2019-09-22] MEDS: DUONEB (A & A) INH SCH ×6 (03:53→23:28)
[2019-09-22 05:30] LABS: HEMOGLOBIN A1C 7.8 % (4.8-6.0)
[2019-09-22 05:39] LABS: BASO# 0.01 X1000 (0.0-0.2); HEMATOCRIT 38.5 % (42.0-52.0); HEMOGLOBIN 12.4 g/dL (14.0-18.0); IMM GRAN# 0.16 X1000 (0.0-0.04); IMM GRAN% 0.8 % (0.0-0.5); LYMPH# 1.29 X1000 (1.2-3.4); LYMPH% 6.3 % (20.5-51.1); MCH 26.4 PG (27-31); MCHC 32.2 g/dL (33-37); MCV 82.1 FL (81-99); MONO# 2.16 X1000 (0.11-0.59); MONO% 10.5 % (1.7-9.3); MPV 9.3 FL (7.4-10.4); NEUT% 82.4 % (42.2-75.2); PLT 347 X1000 (130-400); RBC 4.69 XMIL (4.7-6.1); RDW 14.9 % (11.5-14.5); WBC 20.62 X1000 (4.8-10.8)
[2019-09-22 06:20] LABS: AGAP 14; BUN 32 mg/dL (8-22); CALCIUM 9.5 mg/dL (8.8-10.2); CHLORIDE 98 mmol/L (98-107); COSMO 287; CREATININE 1.3 mg/dL (0.7-1.2); ESTIMATED GFR > 60; GLUCOSE 174 mg/dL (70-104); POTASSIUM 4.8 mmol/L (3.5-5.1); SODIUM 138 mmol/L (136-145); TCO2 26 mmol/L (25-35)
[2019-09-22] MEDS: HUMALOG SUBQ SCH ×4 (06:28→20:49)
[2019-09-22] MEDS: BREO ELLIPTA 100/25 MCG INH INH SCH (08:35)
[2019-09-22 09:38] LABS: LYMPHS 6 % (21-51); MONO 6 % (1-9); SEGS 88 % (42-75)
[2019-09-22] MEDS: NEURONTIN PO SCH ×3 (10:29→20:48)
[2019-09-22] MEDS: FLOMAX PO SCH (10:29)
[2019-09-22] MEDS: ZYLOPRIM PO SCH (10:29)
[2019-09-22] MEDS: PREDNISONE PO SCH (10:29)
[2019-09-22] MEDS: IMDUR PO SCH (10:29)
[2019-09-22] MEDS: SINGULAIR PO SCH (10:29)
[2019-09-22] MEDS: RANEXA PO SCH ×2 (10:29→20:48)
[2019-09-22] MEDS: ELOCON CREAM TOP SCH (10:30)
[2019-09-22] MEDS: GLUCOPHAGE PO SCH ×2 (10:30→16:52)
[2019-09-22] MEDS: SOLU-MEDROL IV SCH (10:30)
[2019-09-22] MEDS: LASIX IV SCH (10:30)
[2019-09-22] MEDS: PROSCAR PO SCH (10:30)
[2019-09-22] MEDS: NORVASC PO SCH (10:30)
[2019-09-22] MEDS: CLINORIL PO SCH (10:30)
[2019-09-22] MEDS: KLOR-CON POWDER PACKET PO SCH (10:32)
[2019-09-22] MEDS: PROTONIX IV SCH (16:51)
[2019-09-22] MEDS: LEVAQUIN 500 MG in NS 100 ML IV SCH (20:47)
[2019-09-22] MEDS: LOVENOX SUBQ SCH (20:48)
[2019-09-22] MEDS: LANTUS INSULIN SUBQ SCH (20:48)
--- NOTE | 2019-09-22 23:18 | PROGRESS NOTE ---
DATE: 09/22/2019 SUBJECTIVE: The patient is doing better. He still has some blisters on the right leg and complains of left sciatica pain. OBJECTIVE: Vital signs: On examination, temp is 97.6 degrees, pulse 76, blood pressure is 148/9, saturation 99%. HEENT: Within normal limits. Neck: Supple. Chest: Clear. Cardiovascular: Heart sounds are regular. Rest of the exam is unchanged. ASSESSMENT AND PLAN: 1. Right leg dependent edema with blisters, etiology to be determined. 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 Consults with wound consult. 2. Left sciatica pain. Will use the physical therapy. 3. Deep venous thrombosis prophylaxis with Lovenox. 4. Diabetes is stable. 5. Localized cellulitis on the right leg with Levaquin. I will cut down the dose of methylprednisolone and continue present treatment. LEVEL OF DOCUMENTATION: 25 minutes. cc: Brian Motta MD
[2019-09-23] MEDS: DUONEB (A & A) INH SCH ×6 (03:59→23:02)
[2019-09-23] MEDS: HUMALOG SUBQ SCH ×4 (06:45→21:04)
[2019-09-23] MEDS: BREO ELLIPTA 100/25 MCG INH INH SCH (07:40)
[2019-09-23] MEDS: LASIX IV SCH (08:04)
[2019-09-23] MEDS: ELOCON CREAM TOP SCH (08:05)
[2019-09-23] MEDS: NEURONTIN PO SCH ×3 (08:05→21:03)
[2019-09-23] MEDS: KLOR-CON POWDER PACKET PO SCH (08:05)
[2019-09-23] MEDS: IMDUR PO SCH (08:05)
[2019-09-23] MEDS: FLOMAX PO SCH (08:05)
[2019-09-23] MEDS: NORVASC PO SCH (08:05)
[2019-09-23] MEDS: CLINORIL PO SCH (08:05)
[2019-09-23] MEDS: SOLU-MEDROL IV SCH (08:05)
[2019-09-23] MEDS: GLUCOPHAGE PO SCH ×2 (08:05→16:25)
[2019-09-23] MEDS: SINGULAIR PO SCH (08:05)
[2019-09-23] MEDS: PROSCAR PO SCH (08:05)
[2019-09-23] MEDS: ZYLOPRIM PO SCH (08:05)
[2019-09-23] MEDS: RANEXA PO SCH ×2 (08:06→21:03)
[2019-09-23] MEDS: PREDNISONE PO SCH (08:06)
[2019-09-23] MEDS: MIRALAX PO SCH (11:22)
[2019-09-23] MEDS: PROTONIX IV SCH (16:26)
[2019-09-23] MEDS: LANTUS INSULIN SUBQ SCH (21:04)
[2019-09-23] MEDS: LOVENOX SUBQ SCH (21:04)
[2019-09-23] MEDS: LEVAQUIN 500 MG in NS 100 ML IV SCH (21:05)
[2019-09-24] MEDS: HUMALOG SUBQ SCH ×6 (00:24→22:58)
--- NOTE | 2019-09-24 01:06 | PROGRESS NOTE ---
DATE: 09/23/2019 SUBJECTIVE: The patient still complains of left-sided sciatica pain, seen by Dr. Patel. Previous x-rays spondylosis. He is able to ambulate. In terms of the edema of both legs, improving. Right leg blisters with open sores, slowly subsiding. He also has localized redness, is improving. Blood sugars running a little bit high. OBJECTIVE: Vital signs: Temperature is 97.4 degrees, pulse is 84, blood pressure is 160/62, O2 saturation 98% nasal cannula. HEENT: Within normal limits. Neck: Supple. Chest: Bilateral air entry. Heart: Sounds are regular. Abdomen: Belly is soft, obese. Skin: Rash is getting better. Neurologic: No obvious deficits. INVESTIGATIONS: None reported. ASSESSMENT AND PLAN: 1. Left sciatica pain due to spondylosis. Continue physical therapy. 2. Edema both legs, improving with cellulitis. 3. Elevated white cell count due to steroids. I already cut it down to 40 IV daily. 4. Continue sliding scale with insulin coverage. 5. Deep venous thrombosis and gastrointestinal prophylaxis as per order sheet. 6. Continue topical steroid creams in front of the right leg and continue to monitor his progress and follow up. LEVEL OF DOCUMENTATION: 25 minutes. cc: Brian Motta MD
[2019-09-24] MEDS: DUONEB (A & A) INH SCH ×7 (03:23→23:30)
[2019-09-24] MEDS: BREO ELLIPTA 100/25 MCG INH INH SCH (08:01)
[2019-09-24] MEDS: ELOCON CREAM TOP SCH (09:33)
[2019-09-24] MEDS: NEURONTIN PO SCH ×3 (09:33→20:48)
[2019-09-24] MEDS: RANEXA PO SCH ×2 (09:35→20:48)
[2019-09-24] MEDS: PROSCAR PO SCH (09:35)
[2019-09-24] MEDS: IMDUR PO SCH (09:35)
[2019-09-24] MEDS: SINGULAIR PO SCH (09:35)
[2019-09-24] MEDS: FLOMAX PO SCH (09:35)
[2019-09-24] MEDS: GLUCOPHAGE PO SCH ×3 (09:35→17:42)
[2019-09-24] MEDS: ZYLOPRIM PO SCH (09:35)
[2019-09-24] MEDS: PREDNISONE PO SCH (09:35)
[2019-09-24] MEDS: KLOR-CON POWDER PACKET PO SCH (09:36)
[2019-09-24] MEDS: LASIX IV SCH (09:36)
[2019-09-24] MEDS: SOLU-MEDROL IV SCH (09:36)
[2019-09-24] MEDS: NORVASC PO SCH (09:36)
[2019-09-24] MEDS: MIRALAX PO SCH (09:36)
[2019-09-24] MEDS: CLINORIL PO SCH (09:46)
[2019-09-24] MEDS: PROTONIX PO SCH (14:24)
[2019-09-24] MEDS: LEVAQUIN 500 MG in NS 100 ML IV SCH (19:59)
[2019-09-24] MEDS: LOVENOX SUBQ SCH (20:48)
[2019-09-24] MEDS: LANTUS INSULIN SUBQ SCH (20:48)
--- NOTE | 2019-09-24 23:34 | PROGRESS NOTE ---
DATE: 09/24/2019 SUBJECTIVE: The patient is getting better. No complaints. Left sciatica pain is better. Inflammation of the right leg blisters. Rash is improving in the front of the leg. PHYSICAL EXAMINATION: Temperature is 98 degrees, pulse 65, blood pressure is stable, 3 L nasal cannula, 98%. HEENT: Exam within normal limits. Neck: Supple. Chest: Clear to auscultation. Heart: Sounds are regular. Belly is soft, nontender. INVESTIGATIONS: None. Blood sugar is 434. ASSESSMENT AND PLAN: 1. Pickwickian syndrome. 2. Insulin dependent diabetes. 3. Sleep apnea. 4. Asthmatic bronchitis. 5. Intractable back pain. 6. Dependent edema with cellulitis. 7. 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 Continue steroids, IV antibiotics and Lasix and if he continues to improve, we will discharge in the morning with topical steroids and Lasix and control blood sugars. LEVEL OF DOCUMENTATION: 25 minutes. cc: Brian Motta MD
[2019-09-25] MEDS: DUONEB (A & A) INH SCH ×3 (03:05→10:58)
[2019-09-25] MEDS: HUMALOG SUBQ SCH ×2 (06:26→10:56)
[2019-09-25] MEDS: PROTONIX PO SCH (06:29)
[2019-09-25] MEDS: BREO ELLIPTA 100/25 MCG INH INH SCH (07:48)
[2019-09-25 08:14] VITALS: BP 165/67
[2019-09-25] MEDS: PREDNISONE PO SCH (08:15)
[2019-09-25] MEDS: IMDUR PO SCH (08:15)
[2019-09-25] MEDS: NEURONTIN PO SCH (08:15)
[2019-09-25] MEDS: MIRALAX PO SCH (08:15)
[2019-09-25] MEDS: RANEXA PO SCH (08:16)
[2019-09-25] MEDS: SOLU-MEDROL IV SCH (08:16)
[2019-09-25] MEDS: PROSCAR PO SCH (08:16)
[2019-09-25] MEDS: SINGULAIR PO SCH (08:16)
[2019-09-25] MEDS: FLOMAX PO SCH (08:16)
[2019-09-25] MEDS: LASIX IV SCH (08:16)
[2019-09-25] MEDS: CLINORIL PO SCH (08:16)
[2019-09-25] MEDS: NORVASC PO SCH (08:16)
[2019-09-25] MEDS: ZYLOPRIM PO SCH (08:16)
[2019-09-25] MEDS: GLUCOPHAGE PO SCH (08:17)
[2019-09-25] MEDS: ELOCON CREAM TOP SCH (08:27)
[2019-09-25] MEDS: KLOR-CON POWDER PACKET PO SCH (08:30)
[2019-09-25] MEDS ORDERED: FLU VACCINE IM ONE (10:01)
--- NOTE | 2019-09-27 06:56 | DISCHARGE SUMMARY ---
ADMISSION DATE: 09/19/2019 DISCHARGE DATE: 09/25/2019 DISCHARGING DIAGNOSIS: Bilateral dependent edema with cellulitis in the right leg, with blisters in front of both legs, right worse than the left side. Questionable diagnosis of lipoidica diabeticorum. SECONDARY DIAGNOSES: 1. Pickwickian syndrome. 2. History of asthma, on prednisone, off on Xolair. 3. Sleep apnea. 4. Noncritical coronary artery disease. 5. Benign prostatic hypertrophy. 6. 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 7. Type 2 diabetes, dependent on insulin. 8. Hypertension. 9. Acid reflux disease. 10. Nonalcoholic steatohepatitis. 11. Umbilical hernia. 12. Osteoarthritis of lumbar spine, under the treatment with a pain specialist. BRIEF HISTORY: Please see the H and P that was done by Dr. Whalen. In brief, he is a 74-year-old, -Thai male admitted to the hospital with bilateral swelling of legs. Not able to walk, with intractable left sciatica pain, and rash in front of both shins. Right is worse than the left side, with edema and swelling, associated with localized cellulitis. HOSPITAL COURSE: 1. The patient was given IV Lasix and IV Levaquin. Wound care consult was obtained. 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 I spoke to the wound consult about the rash, and continue topical steroids and elevation, and reduce the swelling. 2. As far as the back pain, the patient is able to ambulate with physical therapy with assistance as long as the pain is adequately controlled. No neurological deficits. Continue medical management as I discussed with the patient. Rest of the hospital course was uneventful. LABS: CBC: White cell count 20, hematocrit 38, platelets 347,000. Sedimentation rate was 16. ABG: PH is 7.36, pCO2 of 59, PO2 of 75 on 32%. Sodium 138, potassium 4.8, BUN 32, creatinine 1.3. A1c is 7.8. ProBNP 72. EKG: Sinus rhythm, first-degree AV block. DISCHARGE INSTRUCTIONS: Flu vaccine 09/25/2019, pneumococcal vaccine 05/01/2017. Breo 1 puff daily, Combivent q.6 as needed, isosorbide 30 daily, sulindac 150 daily as needed, Lantus 40 units at bedtime, allopurinol 100 daily, amlodipine 10 daily, Bumex 2 mg p.o. b.i.d., finasteride 5 mg daily, gabapentin 800 t.i.d., metformin 500 p.o. b.i.d., potassium 20 mEq daily, prednisone 10 daily, Ranexa 1000 p.o. b.i.d., Flomax 0.4 daily, Singulair 10 daily, baclofen 10 as needed, Levaquin 500 daily, Elocon cream topically for the blisters once daily. Continue the pain management with Angelique with the pain specialist and follow up in my office in 10 days. cc: Brian Motta MD
== END 2019-09-25 11:56 | disposition home health service (06) | DRG 638 ==
LOC: DIRADM 15:47 → EDIPHOLD 17:36 → 1N 20:33
PROVIDERS: ADMIT Internal Medicine; ATTEND Internal Medicine

== ENCOUNTER 2019-11-02 08:25 | Inpatient (IN) ==
--- NOTE | 2019-11-02 09:25 | PROVIDER DOCUMENTATION ---
HPI-General Adult - General Chief Complaint: Shortness of Breath Stated Complaint: POSS SEIZURE Time Seen by Provider: 11/02/19 09:11 Source: patient Allergies/Adverse Reactions: Patient Allergies Allergy/AdvReac Type Severity Reaction Status Date / Time fosinopril sodium * Allergy Severe ANAPHYLAXIS Verified 12/19/16 13:55 [From Monopril] Home Medications: Home Medication List Medication Instructions Recorded Confirmed Last Taken Type Isosorbide Mononitrate [Isosorbide 30 mg PO DAILY 12/19/16 11/02/19 11/01/19 History Mononitrate ER] Sulindac 150 mg PO DAILY 12/19/16 11/02/19 11/01/19 History Insulin Glargine [Lantus] 40 unit SUBQ QHS insuln.pen 05/01/17 11/02/19 11/01/19 Rx Albuterol Sulfate [Proair Hfa] 8.5 gm INHALATION Q4-6H PRN PRN 02/12/19 11/02/19 11/01/19 History Allopurinol 100 mg PO DAILY 02/12/19 11/02/19 11/01/19 History Amlodipine [Norvasc] 10 mg PO DAILY 02/12/19 11/02/19 11/01/19 History Bumetanide 2 mg PO BID 02/12/19 11/02/19 11/01/19 History Finasteride 5 mg PO DAILY 02/12/19 11/02/19 11/01/19 History Gabapentin 800 mg PO TID 02/12/19 11/02/19 11/01/19 History Metformin [Glucophage] 500 mg PO BID 02/12/19 11/02/19 11/01/19 History Montelukast Sodium [Singulair] 10 mg PO DAILY 02/12/19 11/02/19 11/01/19 History Potassium Chloride [Klor-Con] 20 meq PO DAILY 02/12/19 11/02/19 11/01/19 History Prednisone 10 mg PO DAILY 02/12/19 11/02/19 11/01/19 History Ranolazine [Ranexa] 1,000 mg PO BID 02/12/19 11/02/19 11/01/19 History Tamsulosin [Flomax] 0.4 mg PO DAILY 02/12/19 11/02/19 11/01/19 History Baclofen 10 mg PO DAILY PRN PRN 09/19/19 11/02/19 11/01/19 History Hydrocodone/APAP 10 mg/325 mg 1 tab PO BID 09/19/19 11/02/19 11/01/19 History [[place]-10] Levofloxacin [Levaquin] 500 mg PO DAILY #7 tab 09/25/19 11/02/19 11/01/19 Rx Mometasone Furoate [Elocon] 5 gm TOPICAL DAILY #60 cream..g. 09/25/19 11/02/19 11/01/19 Rx Ipratropium/Albuterol Sulfate 2 puff INH DAILY 11/02/19 11/02/19 11/01/19 History [Combivent Respimat 20-100 Mcg] - History of Present Illness -Gen Adult Nature of Presenting Problems: Pt. is 74 yom that presents with c/o SOB. Pt. was normal yesterday and this morning he fell at home and couldn't get to his oxygen. He has a Hx of COPD and CHF. He is struggling to speak so his family is answering for him. He denies any other complaints. The family states they think he may have had a seizure. Location of Pain/Injury: reports: none. denies: head, face, mouth, neck, chest, upper extremity, hand(s), abdomen, back, pelvis, genitalia, lower extremity, feet, upper body, lower body, generalized, other Pain Radiation: reports: no radiation. denies: arm(s), back, buttocks, chest, epigastric, feet, groin, jaw, flank (L), legs (lower), LLQ, LUQ, neck, periumbilical, flank (R), RLQ, RUQ, shoulder(s), scapula, scrotal, sternal notch, suprapubic, legs (upper), urethral, vaginal, other Quality of Pain: reports: none. denies: aching, indigestion, throbbing Severity: reports: severe. denies: mild, moderate Onset/Duration: reports: abrupt, this morning Timing: reports: still present. denies: improving, intermittent, getting worse Context/Activities at Onset: reports: none. denies: light activity, moderate activity, vigorous activity, recent emotional stress, recent physical stress, recent trauma history, possible bad food, cold exposure, eating, out of country travel, rest, sleep, sexual activity, other Modifying Factors: improves with: nothing Associated Symptoms: reports: seizure, shortness of breath, weakness. denies: denies symptoms, anxiety, arm pain, back/neck pain, chest pain, constipation, cough, diaphoresis, diarrhea, dizziness, EENT symptoms, fatigue, fever/chills, genitourinary problems, headaches, heartburn, joint pain, loss of appetite, malaise, muscle aches, sinus congestion/drainage, nausea, rash, sensory/motor loss, pain with inspiration, swelling/mass in abdomen, syncope, vomiting, trouble walking, other Similar Symptoms Previously?: Yes Recently seen or treated by another doctor?: No Review of Systems - Adult - REVIEW OF SYSTEMS - ADULT Constitutional: reports: see HPI, fever. denies: fatique, weight gain, weight loss Eyes: reports: no symptoms reported Ears, Nose, Mouth & Throat: reports: no symptoms reported Cardiovascular: reports: no symptoms reported Respiratory: reports: see HPI, dyspnea on exertion, shortness of breath. denies: cough, pleurisy, wheezing Gastrointestinal: reports: no symptoms reported Genitourinary: reports: no symptoms reported Musculoskeletal: reports: no symptoms reported Integumentary: reports: no symptoms reported Neurological: reports: no symptoms reported Psychiatric: reports: no symptoms reported Past History - Adult - PAST MEDICAL HISTORY-ADULT Review of Records: reports: Old Records Reviewed, Nursing Assessment Review, Medications Reviewed, Social history reviewed & non-contributory. Cardiovascular: reports: CHF, HTN, hyperlipidemia Respiratory: reports: asthma, COPD (o2 dependent) Musculoskeletal: reports: chronic pain Endocrine/Immune: reports: Diabetes - PRIOR SURGERIES/PROCEDURES Surgical/Procedure History: reports: hernia repair, orthopedic (extremity), other - PRIOR HOSPITALIZATIONS Prior Hospitalizations: reports: none - IMMUNIZATION STATUS Childhood Immunizations: UTD, See Nurse Assessment Flu Vaccine: See Nurse Assessment - FAMILY HISTORY Family History: reviewed, not pertinent - SOCIAL HISTORY Smoking: denies Physical Exam-General - PHYSICAL EXAM-ADULT Initial Vital Signs Reviewed: Yes - CONSTITUTIONAL General Appearance: alert, severe distress, obese. negative: anxious, obtunded, combative - EYES Eyes: PERRL/EOMI, pink conjunctivae - HEAD, EARS, NOSE, MOUTH & THROAT HENMT: normocephalic/atraumatic, moist mucous membranes - NECK Neck: non-tender, full range of motion, supple, normal inspection - RESPIRATORY Respiratory: respiratory distress, decreased breath sounds, increased rate. negative: crackles, rales, rhonchi - CARDIOVASCULAR Cardiovascular: tachycardia. negative: extra beats, friction rub - GASTROINTESTINAL (ABDOMEN) Abdominal Exam: normal bowel sounds, non tender, soft - LYMPHATIC Lymphatic: no adenopathy - MUSCULOSKELETAL Back Exam: normal inspection, no CVA tenderness, no vertebral tenderness Extremity: normal range of motion, non-tender, normal inspection. negative: erythema, inflammation, swelling, tenderness Peripheral Pulses: radial (R): 2+, radial (L): 2+ - SKIN Integumentary: normal color, normal turgor, warm/dry, diaphoresis. negative: cyanosis, mottled, warm - NEUROLOGIC Neurologic: grossly normal, no motor/sensory deficits - PSYCHIATRIC Psych/Mental Status: normal mood/affect, normal thought content, normal thought process, oriented x 3. negative: anxious, paranoid, tearful Progress - PLAN OF CARE/RESULTS Progress/Plan/Lab Results: Vital Signs - 8 hr 11/02/19 08:57 Temperature 99.4 F Pulse Rate 107 H Respiratory Rate 22 Blood Pressure 129/75 O2 Sat by Pulse Oximetry 85 L Orders Category Date Time Status Cardiac Monitoring DIRECTED Care 11/02/19 09:06 Active IV Insertion ORDERED Care 11/02/19 09:06 Active Notify MD of + Sepsis Screen NOW Care 11/02/19 09:06 Active Notify Physician As Ordered Care 11/02/19 09:06 Active CHEST-1 VIEW [RAD] Stat Exams 11/02/19 09:06 Ordered ABG [RESP] Routine Lab 11/02/19 09:06 Ordered BLOOD CULTURE [BLDCUL] Stat Lab 11/02/19 09:06 Uncollected CBC WITH DIFF [HEME] Stat Lab 11/02/19 09:06 Uncollected CK PROFILE [SP CHEM] Stat Lab 11/02/19 09:06 Uncollected COMPREHENSIVE METABOLIC PANEL [CHEM] Stat Lab 11/02/19 09:06 Uncollected LACTATE, PLASMA [CHEM] Q3H Lab 11/02/19 09:15 Uncollected LACTATE, PLASMA [CHEM] Q3H Lab 11/02/19 12:15 Uncollected LACTATE, PLASMA [CHEM] Q3H Lab 11/02/19 15:15 Uncollected MAGNESIUM [CHEM] Stat Lab 11/02/19 09:06 Uncollected PRO B-NATRIURETIC PEPTIDE Stat Lab 11/02/19 09:07 Ordered PROTIME WITH INR [COAG] Stat Lab 11/02/19 09:06 Uncollected PTT [COAG] Stat Lab 11/02/19 09:06 Uncollected TROPONIN T HIGH SENSITIVITY Stat Lab 11/02/19 09:06 Uncollected URINALYSIS W/POSS RFLX CULT [URINALYSIS] Stat Lab 11/02/19 09:06 Uncollected Oxygen Device Stat Oth 11/02/19 09:06 Active Laboratory Tests 11/02/19 11/02/19 11/02/19 09:50 09:50 09:50 WBC 16.52 H RBC 4.64 L Hgb 12.1 L Hct 38.5 L MCV 83.0 MCH 26.1 L MCHC 31.4 L RDW Std Deviation 15.0 H Plt Count 338 MPV 9.6 Immature Gran % (Auto) 1.4 H Neut % (Auto) 73.0 Lymph % (Auto) 11.0 L [place] % (Auto) 10.4 H Eos % (Auto) 4.0 Baso % (Auto) 0.2 Immature Gran # (Auto) 0.23 H Neut # (Auto) 12.06 H Lymph # (Auto) 1.82 [place] # (Auto) 1.71 H Eos # (Auto) 0.66 Baso # (Auto) 0.04 Specimen Type ARTERIAL Sample Site R RADIAL pH 7.24 L pCO2 78 H* pO2 71 HCO3 27.4 H Base Excess 3.4 H Isaac Test YES A-a O2 Difference 188.0 Lactate 0.50 Blood Gas Modality BI PAP FiO2 % 50.0 Inspiratory BiPAP 16.0 Expiratory BiPAP 6.0 Sodium Potassium Chloride Carbon Dioxide Anion Gap BUN Creatinine Estimated GFR/1.73 m2 BUN/Creatinine Ratio Glucose Calculated Osmolality Calcium Magnesium Total Bilirubin AST ALT Alkaline Phosphatase Creatine Kinase Troponin T High Sens [id number] Pept 205 Total Protein Albumin Globulin Albumin/Globulin Ratio Plasma Lactate Urine Source Urine Color Urine Turbidity Urine pH Ur Specific [place] Urine Protein Ur Glucose (Stick) Ur Ketones (Stick) Urine Blood Urine Nitrite Urine Bilirubin Urobilinogen Dipstick Urine Leukocytes Urine WBC (Auto) Urine RBC (Auto) U Epithel Cells (Auto) Urine Bacteria (Auto) 11/02/19 11/02/19 11/02/19 09:50 09:50 09:50 WBC RBC Hgb Hct MCV MCH MCHC RDW Std Deviation Plt Count MPV Immature Gran % (Auto) Neut % (Auto) Lymph % (Auto) [place] % (Auto) Eos % (Auto) Baso % (Auto) Immature Gran # (Auto) Neut # (Auto) Lymph # (Auto) [place] # (Auto) Eos # (Auto) Baso # (Auto) Specimen Type Sample Site pH pCO2 pO2 HCO3 Base Excess Isaac Test A-a O2 Difference Lactate Blood Gas Modality FiO2 % Inspiratory BiPAP Expiratory BiPAP Sodium 142 Potassium 4.8 Chloride 100 Carbon Dioxide 29 Anion Gap 13 BUN 22 Creatinine 1.2 Estimated GFR/1.73 m2 > 60 BUN/Creatinine Ratio 18 Glucose 184 H Calculated Osmolality 291 Calcium 8.6 L Magnesium 1.5 Total Bilirubin 0.24 AST 9 L ALT 14 Alkaline Phosphatase 86 Creatine Kinase 231 H Troponin T High Sens 42 H Dym-O-Jlfatyluksw Pept Total Protein 6.4 Albumin 4.1 Globulin 2.3 Albumin/Globulin Ratio 1.8 Plasma Lactate < 0.2 L Urine Source Urine Color Urine Turbidity Urine pH Ur Specific [place] Urine Protein Ur Glucose (Stick) Ur Ketones (Stick) Urine Blood Urine Nitrite Urine Bilirubin Urobilinogen Dipstick Urine Leukocytes Urine WBC (Auto) Urine RBC (Auto) U Epithel Cells (Auto) Urine Bacteria (Auto) 11/02/19 10:15 WBC RBC Hgb Hct MCV MCH MCHC RDW Std Deviation Plt Count MPV Immature Gran % (Auto) Neut % (Auto) Lymph % (Auto) [place] % (Auto) Eos % (Auto) Baso % (Auto) Immature Gran # (Auto) Neut # (Auto) Lymph # (Auto) [place] # (Auto) Eos # (Auto) Baso # (Auto) Specimen Type Sample Site pH pCO2 pO2 HCO3 Base Excess Isaac Test A-a O2 Difference Lactate Blood Gas Modality FiO2 % Inspiratory BiPAP Expiratory BiPAP Sodium Potassium Chloride Carbon Dioxide Anion Gap BUN Creatinine Estimated GFR/1.73 m2 BUN/Creatinine Ratio Glucose Calculated Osmolality Calcium Magnesium Total Bilirubin AST ALT Alkaline Phosphatase Creatine Kinase Troponin T High Sens [id number]-Yepxpebuqcp Pept Total Protein Albumin Globulin Albumin/Globulin Ratio Plasma Lactate Urine Source CATH Urine Color YELLOW Urine Turbidity CLEAR Urine pH 5.0 Ur Specific [place] 1.012 Urine Protein TRACE A Ur Glucose (Stick) NEGATIVE Ur Ketones (Stick) NEGATIVE Urine Blood NEGATIVE Urine Nitrite NEGATIVE Urine Bilirubin NEGATIVE Urobilinogen Dipstick NORMAL Urine Leukocytes NEGATIVE Urine WBC (Auto) <10 Urine RBC (Auto) <10 U Epithel Cells (Auto) <10 Urine Bacteria (Auto) NEGATIVE Discussed results and plan of care with patient family. Both agree with plan and verbalizes understanding. Result Diagrams: 11/02/19 09:50 11/02/19 09:50 - EKG 1 Time of EKG reading by physician:: 10:18 - XRAY 1 XRAY Study: Chest ([facility] - [address] [facility], [address] [address] [facility] - [address] [place] [address] Department of Imaging Patient: NURY SUNSHINE EADM Date: 11/02/19#: [id number] : 5ADM Status: [facility]#: [id number] Age/Sex: 74/MRoom/Bed: Loc: ED Ordering Physician: Caity Gray Family Physician: None,PCP Reason for Procedure: SOB Signed CHEST-1 VIEW - 11/02/2019 INDICATION: SOB COMPARISON: 09/19/2019 FINDINGS: The lungs are normally expanded and clear. Heart size and mediastinal contours are normal. No pneumothorax or pleural effusion. IMPRESSION: Negative exam. Electronically signed by David Chi 11/02/2019 9:52 AM 11/02/1952 Interpreting Physician: David Chi MD Dictated Date/Time: 11/02/1951 cc: Caity Gray; None,PCP) XRAY Interpretation: See note - CONSULTS/PCP/HOSPITALIST Notification #1 *Consult/PCP/Hospitalist*: Dr. Motta Time Discussed: 11:17 Reason/Comments: Admission Consult Disposition: Admit (Admit and he will see in hospital) Departure - Departure Date of Disposition Decision: 11/02/19 Time of Disposition Decision: 10:46 DIAGNOSIS: Hypoxemia, COPD with acute exacerbation, Acute respiratory acidosis Disposition: ADMITTED INPATIENT 09 Certified Medical Emergency: Emergent Condition: Serious Referrals and Follow-Ups: None,PCP [Primary Care Provider] - Discharge Education: Steps to Quit Smoking, [id number] - Critical Care Note This patient required my direct & personal management of CC.: Yes Total Time (mins): 45 Critical Care Statement: This patient required my direct personal management to treat or rule out processes, the absence of which, could potentiallly result in sudden, clinically significant life or limb threatening deterioration. Attestation - Physician/ DIYA Attestation Patient care was provided by Advanced Practice Provider:: Yes Advanced Practice Provider:: Caity Gray Advanced Practice Provider documentation review:: The Mid-level provider documentation, treatment plan and medical decision making was reviewed by the physician who agrees with all treatment and medical decision making by the MLP. The physician spent face to face time with patient:: No Advanced Practice Provider documentation review:: Supervising physician onsite and consulted in the evaluation and care of this patient. The physician did not have a face to face encounter with the patient.
--- NOTE | 2019-11-02 09:55 | Diag Imaging Result Doc PS360 ---
CHEST-1 VIEW - 11/02/2019 INDICATION: SOB COMPARISON: 09/19/2019 FINDINGS: The lungs are normally expanded and clear. Heart size and mediastinal contours are normal. No pneumothorax or pleural effusion. IMPRESSION: Negative exam. Electronically signed by David Chi 11/02/2019 9:52 AM
[2019-11-02 10:00] LABS: ALLEN TEST YES; BE 3.4 mmoll (-3.0-3.0); BLOOD TYPE ARTERIAL; HCO3-(ACT) 27.4 mmoll (20.0-26.0); PO2(98.6) 71 mmHg (60-100); SAMPLE BLOOD; pH(98.6) 7.24 (7.35-7.45)
[2019-11-02 10:02] LABS: PCO2(98.6) 78 mmHg (35-45)
[2019-11-02 10:03] LABS: MODALITY BI PAP
[2019-11-02 10:13] LABS: BASO# 0.04 X1000 (0.0-0.2); BASO% 0.2 % (0.0-0.8); EOS# 0.66 X1000 (0.0-0.7); HEMATOCRIT 38.5 % (42.0-52.0); HEMOGLOBIN 12.1 g/dL (14.0-18.0); IMM GRAN# 0.23 X1000 (0.0-0.04); IMM GRAN% 1.4 % (0.0-0.5); LYMPH# 1.82 X1000 (1.2-3.4); MCH 26.1 PG (27-31); MCHC 31.4 g/dL (33-37); MONO# 1.71 X1000 (0.11-0.59); MONO% 10.4 % (1.7-9.3); MPV 9.6 FL (7.4-10.4); NEUT# 12.06 X1000 (1.4-6.5); PLT 338 X1000 (130-400); RBC 4.64 XMIL (4.7-6.1); WBC 16.52 X1000 (4.8-10.8)
[2019-11-02 10:31] LABS: URINE SOURCE CATH
[2019-11-02 10:34] LABS: BILIRUBIN URINE NEGATIVE (NEGATIVE); BLOOD URINE NEGATIVE (NEGATIVE); COLOR YELLOW; GLUCOSE URINE NEGATIVE (NEGATIVE); KETONE URINE NEGATIVE (NEGATIVE); LEUKOCYTES URINE NEGATIVE (NEGATIVE); NITRITE URINE NEGATIVE (NEGATIVE); PROTEIN URINE TRACE mg/dL (NEGATIVE); SP GRAVITY URINE 1.012; TURBIDITY URINE CLEAR (CLEAR); UROBILINOGEN URINE NORMAL (NORMAL)
[2019-11-02 10:34] LABS: AGAP 13; ALB/GLOB RATIO 1.8; ALBUMIN 4.1 g/dL (3.5-5.0); ALKALINE PHOSPHATASE 86 U/L (32-122); BUN 22 mg/dL (8-22); CALCIUM 8.6 mg/dL (8.8-10.2); CHLORIDE 100 mmol/L (98-107); COSMO 291; CREATININE 1.2 mg/dL (0.7-1.2); ESTIMATED GFR > 60; GLUCOSE 184 mg/dL (70-104); GOT 9 U/L (10-34); GPT 14 U/L (10-44); MAGNESIUM 1.5 mg/dL (1.5-2.7); POTASSIUM 4.8 mmol/L (3.5-5.1); SODIUM 142 mmol/L (136-145); TCO2 29 mmol/L (25-35); TOTAL BILIRUBIN 0.24 mg/dL (0.20-1.00); TOTAL PROTEIN 6.4 g/dL (6.3-8.3)
[2019-11-02 10:35] LABS: UR EPITHELIAL CELLS <10 /HPF (<10); URINE BACTERIA NEGATIVE /HPF; URINE RBC <10 /HPF (<10); URINE WBC <10 /HPF (<10)
[2019-11-02 10:39] LABS: CK PROFILE 231 U/L (24-204)
[2019-11-02] MEDS ORDERED: DUONEB (A & A) ONE (11:06)
[2019-11-02 11:19] LABS: INR 1.02; PROTIME 13.5 Seconds (11.0-16.0)
[2019-11-02 11:22] LABS: CK INDEX 1.4 (0.0-2.5); CK-MB 3.26 ng/mL (0.0-5.0)
[2019-11-02] MEDS: DUONEB (A & A) INH SCH ×4 (11:30→23:20)
--- NOTE | 2019-11-02 12:53 | EKG Report ---
Test Performed on : 11/02/2019 10:03:09 AM Test Reason : ED. No order in [place] Blood Pressure : / mmHG Vent. Rate : 097 BPM Atrial Rate : 097 BPM P-R Int : 222 ms QRS Dur : 082 ms QT Int : 328 ms P-R-T Axes : 000 014 042 degrees QTc Int : 416 ms Sinus rhythm. with 1st degree AV block. with occasional premature ventricular complexes. Otherwise normal ECG When compared with ECG of 21-SEP-2019 07:01, premature ventricular complexes. are now present Unconfirmed Result
[2019-11-02] MEDS ORDERED: ZOFRAN IV PRN (18:10)
[2019-11-02] MEDS ORDERED: NEXIUM IV SCH (18:15)
[2019-11-02] MEDS ORDERED: SODIUM CHLORIDE 0.9% INJ SCH (18:15)
[2019-11-02] MEDS: SODIUM CHLORIDE 0.9% INJ SCH (19:19)
[2019-11-02] MEDS: ZOSYN 3.375 GM in NS 50 ML IV SCH (19:19)
[2019-11-02] MEDS: PROTONIX IV SCH (19:19)
[2019-11-02] MEDS: SOLU-MEDROL IV SCH (19:20)
[2019-11-02] MEDS: LOVENOX SUBQ SCH (21:57)
[2019-11-02] MEDS: HUMULIN R SUBQ SCH (21:57)
[2019-11-03] MEDS: ZOSYN 3.375 GM in NS 50 ML IV SCH ×5 (00:52→23:36)
[2019-11-03] MEDS: SOLU-MEDROL IV SCH ×3 (02:00→17:30)
[2019-11-03] MEDS: DUONEB (A & A) INH SCH ×6 (03:21→23:03)
[2019-11-03 05:26] LABS: ALLEN TEST YES; BE 3.9 mmoll (-3.0-3.0); BLOOD TYPE ARTERIAL; HCO3-(ACT) 27.9 mmoll (20.0-26.0); PO2(98.6) 96 mmHg (60-100); SAMPLE BLOOD; SRATE 16 BPM; pH(98.6) 7.24 (7.35-7.45)
[2019-11-03 06:11] LABS: MODALITY BI PAP; PCO2(98.6) 79 mmHg (35-45)
[2019-11-03] MEDS: HUMULIN R SUBQ SCH ×4 (06:36→20:07)
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
--- NOTE | 2019-11-03 07:01 | Diag Imaging Result Doc PS360 ---
EXAM: CHEST-1 VIEW HISTORY: SOB TECHNIQUE: Single view COMPARISON: 11/02/2019 FINDINGS: The lungs are well expanded. No cardiomegaly. Mild pulmonary edema. There is a tiny left pleural effusion. There is atelectasis in the left base versus a small infiltrate. IMPRESSION: Mild interval worsening. Electronically signed by German Orellana 11/03/2019 6:35 AM
[2019-11-03 07:04] LABS: ALLEN TEST YES; BE 3.2 mmoll (-3.0-3.0); BLOOD TYPE ARTERIAL; HCO3-(ACT) 27.3 mmoll (20.0-26.0); O2(CT) 16.5 mL/dL (15.0-23.0); O2HB 93.9 % (95.0-99.0); PO2(98.6) 74 mmHg (60-100); SAMPLE BLOOD; SAO2 95.6 % (95.0-100.0); SRATE 16 BPM; THB 12.5 g/dL (11.5-17.4); pH(98.6) 7.25 (7.35-7.45)
[2019-11-03 07:05] LABS: MODALITY BI PAP
[2019-11-03 07:10] LABS: BASO# 0.02 X1000 (0.0-0.2); BASO% 0.1 % (0.0-0.8); EOS# 0.01 X1000 (0.0-0.7); EOS% 0.1 % (0.0-10.0); HEMOGLOBIN 12.1 g/dL (14.0-18.0); IMM GRAN# 0.11 X1000 (0.0-0.04); IMM GRAN% 0.7 % (0.0-0.5); LYMPH# 0.76 X1000 (1.2-3.4); MCV 83.9 FL (81-99); MONO# 0.15 X1000 (0.11-0.59); MPV 10.2 FL (7.4-10.4); NEUT# 14.27 X1000 (1.4-6.5); NEUT% 93.1 % (42.2-75.2); PLT 307 X1000 (130-400); RBC 4.65 XMIL (4.7-6.1); RDW 15.1 % (11.5-14.5); WBC 15.32 X1000 (4.8-10.8)
[2019-11-03 07:15] LABS: PCO2(98.6) 74 mmHg (35-45)
[2019-11-03 07:33] LABS: AGAP 13; ALBUMIN 3.4 g/dL (3.5-5.0); ALKALINE PHOSPHATASE 79 U/L (32-122); BUN 15 mg/dL (8-22); CALCIUM 8.8 mg/dL (8.8-10.2); CHLORIDE 101 mmol/L (98-107); COSMO 289; ESTIMATED GFR > 60; GLUCOSE 257 mg/dL (70-104); GOT 17 U/L (10-34); GPT 13 U/L (10-44); POTASSIUM 5.1 mmol/L (3.5-5.1); SODIUM 140 mmol/L (136-145); TCO2 26 mmol/L (25-35); TOTAL BILIRUBIN 0.33 mg/dL (0.20-1.00); TOTAL PROTEIN 6.7 g/dL (6.3-8.3)
--- NOTE | 2019-11-03 07:39 | EKG Report ---
Test Performed on : 11/03/2019 07:09:04 AM Test Reason : cp Blood Pressure : / mmHG Vent. Rate : 066 BPM Atrial Rate : 066 BPM P-R Int : 236 ms QRS Dur : 076 ms QT Int : 404 ms P-R-T Axes : 000 -15 036 degrees QTc Int : 423 ms Sinus rhythm. with sinus arrhythmia. with 1st degree AV block. Otherwise normal ECG When compared with ECG of 02-NOV-2019 10:03, (Unconfirmed) premature ventricular complexes. are no longer present Confirmed by Adrienne Sequeira MD ([id number]) on 11/04/2019 1:00:14 PM
[2019-11-03 08:01] LABS: LYMPHS 7 % (21-51); MONO 1 % (1-9); SEGS 92 % (42-75)
[2019-11-03 08:23] LABS: CK INDEX 0.8 (0.0-2.5); CK-MB 4.92 ng/mL (0.0-5.0)
[2019-11-03 15:49] LABS: CK-MB 5.03 ng/mL (0.0-5.0)
[2019-11-03] MEDS: PROTONIX IV SCH (17:30)
[2019-11-03] MEDS: SODIUM CHLORIDE 0.9% INJ SCH (17:30)
[2019-11-03] MEDS: LOVENOX SUBQ SCH (20:07)
--- NOTE | 2019-11-03 21:35 | PROGRESS NOTE ---
DATE: 11/03/2019 SUBJECTIVE: The patient was seen twice; 1 in the morning, 1 in the evening, and he is off BiPAP. He is still bloated up. Apparently, Dr. Lambert has seen him. REVIEW OF SYSTEMS: Obtundation is improving. He has some chemosis of the eyelids. OBJECTIVE: Vital signs: On examination temperature is 98.7 degrees, pulse is 70. Vitals are stable. On 4 L nasal cannula 98%. Intake and output negative about 1.5 L. HEENT: He is a cushingoid feature. Lungs: Decreased wheezing Heart: Distal heart sounds. Abdomen: Belly is soft, obese. Extremities: No peripheral edema. FURNITURE POLISHER: No obvious neurological deficits. INVESTIGATIONS: White cell count 15.32, hematocrit 39, platelets 307,000. ABG: PH is 7.25, pCO2 74, PO2 74 on BiPAP 40%. SMA 7 is normal. Glucose 300. Cardiac enzymes, proBNP were normal. ASSESSMENT AND PLAN: 1. Altered mental status due to metabolic encephalopathy due to CO2 narcosis. 2. Continue on BiPAP. Decrease the FiO2 35%, mostly in the night time in the afternoon. 3. Asthma and chronic obstructive pulmonary disease exacerbation. Continue on IV steroids and IV Zosyn. 4. Deep venous thrombosis and gastrointestinal prophylaxis with Lovenox and Protonix. 5. Advance the diet as tolerated. We will discontinue the Lipscomb in the morning and slowly reconcile home medications. The patient is seeing Dr. Thurston for chronic pain. We need to cut down some of these gabapentin and hydrocodone and we will reconcile home medicines tomorrow and we will repeat the blood gas tomorrow and will follow up. LEVEL OF DOCUMENTATION: 25 minutes. cc: Brian Motta MD
[2019-11-03] MEDS ORDERED: LASIX IV ONE (21:37)
[2019-11-04 00:08] LABS: CK-MB 5.36 ng/mL (0.0-5.0)
[2019-11-04] MEDS: SOLU-MEDROL IV SCH ×3 (02:08→18:54)
[2019-11-04] MEDS: DUONEB (A & A) INH SCH ×7 (03:25→23:24)
--- NOTE | 2019-11-04 04:53 | PULMONOLOGY CONSULTATION ---
DATE: 11/03/2019 REQUESTING PHYSICIAN: Dr. Motta. REASON FOR CONSULTATION: Respiratory failure. HISTORY OF PRESENT ILLNESS: Mr. Araujo is a 74-year-old black male with history of COPD, history of allergic asthma, history of morbid obesity, and Pickwickian syndrome, who has been followed in my clinic for several years. The patient was last seen in my office 08/03/2019 when he received a Xolair injection. He subsequently informed the nurse that he did not think he would be taking them anymore, and he has not received additional injections since that time. It is not clear why he stopped taking the medicines, but I am assuming it is related to finances. The patient has been admitted to the hospital in September with cellulitis and lower extremity edema. He was brought to the emergency room yesterday obtunded with hypoxemic respiratory failure. He was placed on BiPAP, and he is now awake and alert. He does not recall the events of yesterday. The patient does have a CPAP at home, but indicates he is not 100% compliant. PAST MEDICAL HISTORY/PROBLEM LIST: 1. Allergic asthma. He previously qualified for Xolair, but has stopped this medication. He has been a difficult patient to manage and frequently missed his appointments. 2. Morbid obesity. 3. Chronic obstructive pulmonary disease. 4. Coronary artery disease. 5. Gastroesophageal reflux disease. 6. Sleep apnea on CPAP. 7. Chronic back pain. SOCIAL HISTORY: Patient denies alcohol use. He has extensive tobacco history, but none recently by his report. FAMILY HISTORY: Noncontributory to current presentation. PHYSICAL EXAMINATION: General: Reveals an obese black male resting comfortably, and in no distress. Vital Signs: BP 166/41, heart rate 77, respiratory rate 19, and oxygen saturation 98%. HEENT: Pupils are equal and reactive. Oropharynx appears clear. Neck: Supple. Chest: Reveals distant breath sounds bilaterally with faint distant wheezing. Cardiac: Distant heart sounds. Normal S1, normal S2. Abdomen: Obese and soft. Extremities: Reveal chronic lower extremity edema. LABORATORIES: Chest x-ray reveals mild vascular congestion with mild edema, shallow inspiration, and tiny left-sided effusion. Arterial blood gas reveals a pH 7.25, pCO2 of 74, PO2 of 74 on BiPAP. Sodium 140, potassium 5.1, chloride 101, bicarbonate 26, BUN 15, creatinine 1.0, and glucose 176. IMPRESSION: A 74-year-old with: 1. Acute on chronic hypercapnic respiratory failure. 2. Acute on chronic hypoxemic respiratory failure. 3. Asthma/COPD exacerbation. 4. Obstructive sleep apnea with marginal compliance with CPAP device. 5. Prior Xolair use with discontinuation as outlined in the HPI. 6. Component of cor pulmonale. PLAN: 1. Continue BiPAP at bedtime and p.r.n. 2. Agree with current steroid and antibiotic dosing. 3. Diuresis this evening. 4. Long-term, he would benefit from significant weight loss. cc: MD Brian Wilson MD
[2019-11-04 05:19] LABS: ALLEN TEST YES; BLOOD TYPE ARTERIAL; HCO3-(ACT) 30.4 mmoll (20.0-26.0); PO2(98.6) 104 mmHg (60-100); SAMPLE BLOOD; pH(98.6) 7.36 (7.35-7.45)
[2019-11-04 05:45] LABS: MODALITY CANNULA; PCO2(98.6) 61 mmHg (35-45)
[2019-11-04] MEDS ORDERED: LASIX IV ONE (06:00)
[2019-11-04] MEDS: ZOSYN 3.375 GM in NS 50 ML IV SCH ×3 (06:10→18:54)
[2019-11-04] MEDS: HUMULIN R SUBQ SCH ×4 (06:11→20:19)
[2019-11-04 07:03] LABS: AGAP 13; ALB/GLOB RATIO 1.1; ALBUMIN 3.8 g/dL (3.5-5.0); ALKALINE PHOSPHATASE 76 U/L (32-122); BUN 14 mg/dL (8-22); CALCIUM 9.2 mg/dL (8.8-10.2); CHLORIDE 95 mmol/L (98-107); COSMO 289; CREATININE 0.9 mg/dL (0.7-1.2); ESTIMATED GFR > 60; GLUCOSE 326 mg/dL (70-104); GOT 15 U/L (10-34); GPT 17 U/L (10-44); POTASSIUM 4.3 mmol/L (3.5-5.1); SODIUM 138 mmol/L (136-145); TCO2 30 mmol/L (25-35); TOTAL BILIRUBIN 0.32 mg/dL (0.20-1.00); TOTAL PROTEIN 7.3 g/dL (6.3-8.3)
[2019-11-04] MEDS: NORVASC PO SCH (09:41)
[2019-11-04] MEDS: PROSCAR PO SCH (09:41)
[2019-11-04] MEDS: ZYLOPRIM PO SCH (09:41)
[2019-11-04] MEDS: FLOMAX PO SCH (09:41)
[2019-11-04] MEDS: GLUCOPHAGE PO SCH ×2 (09:41→18:54)
[2019-11-04] MEDS: BUMEX PO SCH ×2 (09:41→20:18)
[2019-11-04] MEDS: IMDUR PO SCH (09:42)
[2019-11-04] MEDS: RANEXA PO SCH ×2 (09:42→20:18)
[2019-11-04] MEDS ORDERED: NORCO-10 PO PRN (16:05)
[2019-11-04] MEDS: PROTONIX IV SCH (18:54)
[2019-11-04] MEDS: SODIUM CHLORIDE 0.9% INJ SCH (18:54)
[2019-11-04] MEDS: LOVENOX SUBQ SCH (20:18)
[2019-11-04] MEDS: LANTUS INSULIN SUBQ SCH (20:19)
--- NOTE | 2019-11-04 21:44 | PROGRESS NOTE ---
DATE: 11/04/2019 SUBJECTIVE: The patient is much better and he is awake. Apparently, family is requesting to go for long term, which I do not have any idea. PHYSICAL EXAMINATION: Vital signs: Temperature is 97 degrees. Pulse is 75. Vitals are stable. Inputs and outputs were negative about 4.5 liters. General: He is more lucid,, heavy set, cushingoid features. Lungs: Decreased wheezing. Heart: Distant heart sounds. Abdomen: Belly is soft. Morbidly obese. Extremities: No peripheral edema. INVESTIGATIONS: ABGs: PH is 7.36, pCO2 61, pO2 104 on 4 L nasal cannula. SMA 7 and LFTs were normal. Blood cultures were negative. ASSESSMENT AND PLAN: 1. Acute respiratory failure due to Pickwickian syndrome and asthma. Decreased the FiO2 to 3 L and started on Bumex. 2. Advance the diet to diabetic diet. 3. Reconcile home medicines. 4. Chronic pain, on [place]. I am going to decrease the gabapentin dose and continue present treatment. 5. Discontinue Lipscomb. Appreciated Dr. Lambert's consult. 6. Possible long term placement. 7. Slowly cut down the Neurontin dose. LEVEL OF DOCUMENTATION: 35 minutes. cc: Brian Motta MD
--- NOTE | 2019-11-04 23:56 | PULMONOLOGY PROGRESS NOTE ---
DATE: 11/04/2019 SUBJECTIVE: The patient is awake, alert, and conversant. He is sitting on the side of the bed. He has had good urine output with Lasix. He reports his breathing has improved. OBJECTIVE: Vital Signs: The patient has been afebrile for the last 24 hours. Blood pressure 148/53, heart rate 77, respiratory rate 17, oxygen saturation 98%. HEENT: Pupils are equal and reactive. Oropharynx appears clear. Neck: Supple. Chest: Reveals diminished breath sounds bilaterally with prolonged expiratory phase. Abdomen: Obese and soft. Extremities: Reveal trace edema. LABORATORIES: Arterial blood gas on nasal cannula reveals a pH of 7.36, pCO2 of 61, PO2 of 104. Sodium 138, potassium 4.3, chloride 95, bicarbonate 30, BUN 14, creatinine 0.9. IMPRESSION: A 74-year-old with: 1. Acute on chronic hypercapnic respiratory failure. 2. Acute on chronic hypoxemic respiratory failure. 3. Asthma/chronic obstructive pulmonary disease exacerbation. 4. Obstructive sleep apnea. 5. Component of cor pulmonale with good urine output. 6. Previous Xolair use as outlined in yesterday's consultation. PLAN: 1. Continue BiPAP at bedtime and p.r.n. 2. Continue steroids and antibiotic dosing. 3. Diuresis as tolerated. 4. Diet counseling. cc: MD Brian Wilson MD
[2019-11-05] MEDS: ZOSYN 3.375 GM in NS 50 ML IV SCH ×4 (01:47→18:23)
[2019-11-05] MEDS: SOLU-MEDROL IV SCH ×2 (01:48→09:03)
[2019-11-05] MEDS: DUONEB (A & A) INH SCH ×7 (03:36→23:45)
[2019-11-05] MEDS: HUMULIN R SUBQ SCH ×4 (06:54→20:48)
[2019-11-05] MEDS ORDERED: LASIX IV ONE (08:39)
[2019-11-05] MEDS: BUMEX PO SCH ×3 (09:01→21:38)
[2019-11-05] MEDS: GLUCOPHAGE PO SCH ×2 (09:01→18:23)
[2019-11-05] MEDS: FLOMAX PO SCH (09:02)
[2019-11-05] MEDS: PROSCAR PO SCH (09:02)
[2019-11-05] MEDS: IMDUR PO SCH (09:02)
[2019-11-05] MEDS: NORVASC PO SCH (09:02)
[2019-11-05] MEDS: RANEXA PO SCH ×3 (09:02→21:38)
[2019-11-05] MEDS: ZYLOPRIM PO SCH (09:02)
[2019-11-05] MEDS: SODIUM CHLORIDE 0.9% INJ SCH (18:23)
[2019-11-05] MEDS: PROTONIX IV SCH (18:23)
[2019-11-05] MEDS: LOVENOX SUBQ SCH ×2 (19:45→21:38)
[2019-11-05] MEDS: LANTUS INSULIN SUBQ SCH (20:48)
--- NOTE | 2019-11-05 21:26 | PROGRESS NOTE ---
DATE: 11/05/2019 SUBJECTIVE: Patient is feeling much better. I spoke along with the nurses that he refused to go for rehab placement. He wants to go home. I appreciated Dr. Lambert's comments. FiO2 cut down to 3 L. REVIEW OF SYSTEMS: Basically stable. PHYSICAL EXAMINATION: Vital signs: Temperature is 97 degrees. Vitals are stable. 3 L nasal cannula, 100%. HEENT: Within normal limits. Neck: Supple. Lungs: Decreased wheezing. Heart: Sounds are regular. Abdomen: Belly is soft and nontender. Good bowel sounds. Neurologic: No obvious deficits. ASSESSMENT AND PLAN: Acute respiratory failure due to carbon dioxide syndrome. Plan is decrease oxygen at 3 L, out of the bed with physical therapy, decrease intravenous steroids, and Lasix was given by Dr. Lambert. We will check the arterial blood gases tomorrow and continue outpatient CPAP machine. I will change the discharge to home. Patient is encouraged to walk today. LEVEL OF DOCUMENTATION: 25 minutes. cc: Brian Motta MD
[2019-11-06] MEDS: ZOSYN 3.375 GM in NS 50 ML IV SCH ×2 (00:51→06:16)
[2019-11-06] MEDS: DUONEB (A & A) INH SCH ×2 (03:45→07:48)
--- NOTE | 2019-11-06 04:34 | PULMONOLOGY PROGRESS NOTE ---
DATE: 11/05/2019 SUBJECTIVE: The patient is awake, alert, and conversant. He reports he has had a good day. He reports he is not interested in going into a rehab facility and wants to go home. OBJECTIVE: Vital Signs: Blood pressure 132/51, heart rate 66, respiratory rate 18, oxygen saturation 100% on 3 L per nasal cannula. HEENT: Pupils are equal and reactive. Oropharynx appears clear. Neck: Supple. Chest: Reveals diminished breath sounds bilaterally. Wheezing no longer present. Cardiac: Distant heart sounds. Normal S1, normal S2. Abdomen: Obese and soft. Extremities: Reveal trace edema. IMPRESSION: 1. Acute on chronic hypoxemic respiratory failure. 2. Acute on chronic hypercapnic respiratory failure. 3. Asthma/chronic obstructive pulmonary disease exacerbation. 4. Obstructive sleep apnea. 5. Cor pulmonale with continued diuresis. DISCUSSION: A 74-year-old with problems outlined above. The patient has significantly improved. He does not wish to go to rehab. PLAN: 1. Encourage patient to use CPAP when he returns home. 2. Anticipate steroid taper. 3. Continue outpatient diuresis. 4. Agree with plans for discharge soon. cc: MD Brian Wilson MD
[2019-11-06 04:48] LABS: ALLEN TEST YES; BE 14.5 mmoll (-3.0-3.0); BLOOD TYPE ARTERIAL; HCO3-(ACT) 36.2 mmoll (20.0-26.0); METHB 0.8 % (0.0-1.5); O2(CT) 18.5 mL/dL (15.0-23.0); O2HB 96.3 % (95.0-99.0); PO2(98.6) 135 mmHg (60-100); SAMPLE BLOOD; SAO2 98.1 % (95.0-100.0); THB 13.5 g/dL (11.5-17.4)
[2019-11-06 04:50] LABS: MODALITY CANNULA; PCO2(98.6) 69 mmHg (35-45)
[2019-11-06] MEDS: HUMULIN R SUBQ SCH (06:39)
[2019-11-06 07:35] VITALS: BP 160/79
[2019-11-06] MEDS: BUMEX PO SCH ×2 (07:36→09:15)
[2019-11-06] MEDS: ZYLOPRIM PO SCH ×2 (07:37→09:17)
[2019-11-06] MEDS: FLOMAX PO SCH ×2 (07:37→09:16)
[2019-11-06] MEDS: IMDUR PO SCH ×2 (07:37→09:16)
[2019-11-06] MEDS: NORVASC PO SCH ×2 (07:37→09:16)
[2019-11-06] MEDS: RANEXA PO SCH ×2 (07:37→09:16)
[2019-11-06] MEDS: PROSCAR PO SCH ×2 (07:38→09:16)
[2019-11-06] MEDS: SOLU-MEDROL IV SCH ×2 (07:38→09:17)
[2019-11-06] MEDS: GLUCOPHAGE PO SCH (07:38)
--- NOTE | 2019-11-08 19:33 | DISCHARGE SUMMARY ---
ADMISSION DATE: 11/02/2019 DISCHARGE DATE: 11/06/2019 DIAGNOSIS: Altered mental status due to delirium due to carbon dioxide narcosis due to acute respiratory failure with asthmatic bronchitis/Pickwickian syndrome. SECONDARY DIAGNOSES: 1. Noncritical CAD. 2. BPH. 3. COPD. 4. Parnell syndrome due to steroids. 5. Type 2 diabetes. 6. Metabolic syndrome. 7. Hypertension. 8. Acid reflux disease. 9. Hyperuricemia. 10. Sleep apnea. 11. Umbilical hernia. 12. Spondylosis of lumbar spine. CONSULTS: Dr. Lambert. PROCEDURES: Noninvasive ventilator support. BRIEF HISTORY: Please see the H P that was done on 11/02/2019. In brief, he is a 74-year-old male who came into the hospital with seizures like disorder, altered mental status, obtundation, unresponsive, very hypoxic with hypercarbia. The patient was seen when the ambulance picked him up from the home. Apparently, patient was taking gabapentin and pain medicines. He was very wheezing. He was respiratory acidosis on the blood gas, hypoxic. The patient was placed on Lipscomb catheter and BiPAP machine. Admitted in PVC. I decrease the FiO2 in the meantime started on IV steroids, bronchodilators, IV antibiotics, and Lasix. Chest x-ray was stable. He was ruled out for LA. DVT, GI prophylaxis precautions were given. Dr. Diaz was consulted. Slowly, his symptoms were much improved after CO2 levels came back normal. I told him. He wants to slowly decrease the gabapentin and use the [place] as needed for chronic back pain. The patient came back to the baseline and he wants to go home rather than [facility]. LABORATORY DATA FOLLOWS: CBC: White cell count 15, hematocrit 39, platelets 307,000. ABG: PH is 7.40, pCO2 69, PO2 135 on 32%. Sodium 138, potassium 4.3, chloride 95, BUN 14, creatinine 0.9, sugar is 79. LFTs were normal. Urinalysis is clear. Blood cultures were negative. Chest x- ray mild pulmonary edema. EKG normal sinus first-degree AV block. DISCHARGE INSTRUCTIONS: 1. Weight loss as per Dr. Lambert. 2. Oxygen 2 L. 3. CPAP machine in the night time. 4. Pneumococcal vaccine 13 was given 05/01/2017. 5. Flu vaccine 09/25/2019. 6. Isosorbide 30 mg daily. 7. Sulindac 150 daily. 8. Lantus 40 units at bedtime. 9. Allopurinol 100 daily. 10. Amlodipine 10 daily. 11. Bumex 2 mg p.o. b.i.d. 12. Finasteride 5 mg daily. 13. Discontinue gabapentin. 14. Metformin 500 p.o. b.i.d. 15. Potassium 20 mEq daily. 16. Ranexa 1000 p.o. b.i.d. 17. Flomax 0.4 mg daily. 18. Singulair 10 daily. 19. ProAir HFA as needed. 20. Baclofen 10 p.o. b.i.d. 21. [place] 10 mg p.o. b.i.d. 22. Follow up with [facility]. 23. Elocon cream on the lesions on both legs daily. 24. Combivent 2 puff q. 8. 25. Follow up in my office next week. cc: MD Andres Mueller MD
== END 2019-11-06 09:45 | DRG 189 ==
LOC: ED 08:25 → EDIPHOLD 12:08 → 2N 20:19
PROVIDERS: ADMIT Internal Medicine; ATTEND Internal Medicine